=== PATIENT | male | born 1975 | race Caucasian/White ===

== ENCOUNTER 2020-07-12 11:30 | Outpatient (REF) | payer OTHER, SELFPAY ==
--- NOTE | 2020-07-12 11:38 | XR_ITS ---
EXAMINATION: XR LUMBOSACRAL SPINE CLINICAL INFORMATION: Dorsalgia COMPARISON: None TECHNIQUE: Three views of the lumbosacral spine. FINDINGS: There is no fracture or subluxation. Vertebral body height and alignment is maintained. Mild disc space narrowing of L4-L5 with small endplate osteophytes. The sacroiliac joints are symmetric. The sacrum is intact. The bowel gas pattern is unremarkable. XR/XR lumbar spine 2-3V IMPRESSION: Mild degenerative changes of L4-L5.
== END 2020-07-12 11:31 | disposition home or self-care (01) ==
LOC: HO.XRAY 11:30
PROVIDERS: PCP Internal Medicine; Visit Provider Internal Medicine
DX: M54.9 Dorsalgia, unspecified (principal)
CPT/HCPCS: 72100

== ENCOUNTER 2020-07-24 09:04 | Outpatient (REF) | payer OTHER, SELFPAY | END 2020-07-24 09:05 | disposition home or self-care (01) | LOC: HO.LAB 09:04 | PROVIDERS: Visit Provider Internal Medicine | DX: Z20.828 Contact with and (suspected) exposure to other viral communicable diseases (principal) | CPT/HCPCS: C9803; U0003 ==

== ENCOUNTER 2020-11-09 13:00 | Outpatient (RCR) | payer BC, SELFPAY ==
--- NOTE | 2020-10-12 16:47 | MHC.PT.EP ---
[facility] [place] Office [place] Office [place] Office [address] Carina Khan [address] [phone] F: [phone] F: [phone] F: [phone] F: [phone] Physical Therapy Plan of Care Date of Evaluation: 10/12/20 Date of Surgery: NA Diagnosis: DORSALGIA Assessment: Pt IS 45 YO M REFERRED TO PT FROM DR ORDOÑEZ WITH DORSALGIA. Pt REPORTS LONG HX OF BACK PAIN WITH RECENT INCREASE. REPORTS PAIN AFFECTS ABILITY TO STAND FOR LONG PDS. HAS BEEN OOW ( [employer]). PRESENTS TO PT WITH LIMITED TRUNK AND LE FLEXIBILITY, DECREASED CORE STRENGTH. SHOULD BENEFIT FROM PT TO ADDRESS THESE ISSUES. Frequency and Duration: The patient will be seen 2X/WK X 4 WKS Short Term Goals: 1. INCREASED AWARENESS POSTURE AND BACK CARE 2. Pt TO PERF 2-3 TASKS WITH PROPER BODY MECH 3. CENTRALIZE SXS Harvest [employer]or Goals: 1. I HEP WITH DC EX PLAN 2. RTW 3. IMPROVED MOD OSWESTRY 4. DECREASED BACK PAIN AT LEAST 50% WITH ADLS 5. INCREASED R HS FLEX 5-10 DEGREES Treatment Plan: Modalities to reduce pain, spasms and effusion. Manual therapy to restore motion and function. Therapeutic exercise to improve strength and flexibility. Neuromuscular re-education for posture and balance. Therapeutic activities to return to functional activities of daily living. Electronically signed by: PANCHITO LEDEZMA PT Please sign and return to therapist. Thank you for your referral.
--- NOTE | 2021-02-11 08:43 | MHC.PT.DC ---
[facility] [place] Office [place] Office [place] Office [address] Carina Khan [address] [phone] F: [phone] F: [phone] F: [phone] F: [phone] Physical Therapy Discharge Report Diagnosis: DORSALGIA Date of Surgery: NA Date of Evaluation: 10/12/20 Date of Discharge: 02/11/21 Treatments to Date: 7 Cancellations to Date: 0 No Shows to Date: 0 Discharge Status: Improved Function Independent with HEP Discharge Summary: Pt LAST SEEN ON 11/09/20. THE ASSESSMENT FROM THAT NOTE: Pt HAS MET PT STG 1 AND 2, LTGS 1 AND 4 WITH SEEMINGLY IMPROVED HS FLEXIBILITY PER REPORT. Pt WITH CONTINUED C/O L FOOT SXS AND SOME PARESTHESIA L LE WITH GT (REPORTS RELIEF WITH SITTING). HAS I HEP WITH OVERALL IMPROVED FLEXIBILITY. Pt WITH CONTINUED CONCERN RE LE PARESTHESIA AND WOULD LIKE TO WAIT UNTIL NCV TEST (November) BEFORE CONTINUING WITH FURTHER PT (FU FOR NCV November.) NO FURTHER APPTS SCHEDULED Electronically signed by: PANCHITO LEDEZMA PT Please sign and return to therapist. Thank you for your referral.
== END 2021-02-11 08:44 | disposition other institution (70) ==
LOC: HO.PT 13:00
PROVIDERS: PCP Internal Medicine; Visit Provider Internal Medicine
DX: M54.9 Dorsalgia, unspecified (principal)
CPT/HCPCS: 97110; 97161; 97530

== ENCOUNTER 2021-07-03 13:50 | Emergency (ER) | payer BC, SELFPAY ==
--- NOTE | ~2021-07-03 | XR_ITS ---
EXAMINATION: XR ABDOMEN KUB CLINICAL INDICATION: Abdominal distention. Rule out obstruction. COMPARISON: None TECHNIQUE: AP view of the abdomen. FINDINGS: There are no dilated loops of bowel to suggest obstruction. There is no evidence of free air. No calcifications are seen. Bony structures are unremarkable. XR/XR KUB IMPRESSION: No evidence of obstruction.
[2021-07-03 14:01] VITALS: BP 138/86; PULSE 76; RESP 16; TEMP 36.7; O2SAT 99; BMI 18.3
--- NOTE | 2021-07-03 14:27 | ED_ITS ---
HPI - Abdominal Pain General Chief Complaint: Abdominal Pain Stated Complaint: blood in stool, constipation Time Seen by Provider: 07/03/21 14:27 Source: patient Mode of arrival: ambulatory Limitations: no limitations History of Present Illness HPI narrative: Increased constipation for 4 days. patient states he never suffered from constipation like this before. MD elicited complaint: abdominal pain Pertinent past history: constipation Onset (ago): day(s) Pain Consistency: constant Location: RLQ and LLQ Severity: moderate Quality: cramping Exacerbating factors: nothing Relieving factors: nothing Associated symptoms: denies other symptoms Related Data Home Medications Medication Instructions Recorded Confirmed gabapentin 100 mg capsule 100 mg PO BEDTIME 01/24/21 03/13/21 Previous Rx's Medication Instructions Recorded atenolol 25 mg tablet 25 mg PO DAILY #90 tab 10/05/20 lisinopril 10 mg tablet 10 mg PO DAILY #90 tab 01/22/21 sertraline 50 mg tablet 50 mg PO DAILY #30 tab 02/04/21 lactulose 10 gram/15 mL (15 mL) 20 g (30 mL) PO TID #1440 ml 07/03/21 oral solution psyllium husk 0.4 gram capsule 0.4 g PO DAILY #60 cap 07/03/21 (Metamucil) Allergies Allergy/AdvReac Type Severity Reaction Status Date / Time No Known Allergies Allergy Verified 03/04/21 10:57 Review of Systems Constitutional: Reports no additional constitutional complaints Eyes: Reports no additional eye complaints Denies dizziness Cardiovascular: Reports no additional cardiovascular complaints Respiratory: Reports as per HPI Gastrointestinal: Reports no additional gastrointestinal complaints Musculoskeletal: Reports no additional musculoskeletal complaints Skin/Breast: Denies rash Reports system reviewed and no additional complaints, except as documented, Denies dizziness and Denies Sensory deficit (Neuro) Psychiatric: Denies anxiety Physical Exam Vital Signs: Vital Signs: Last Vital Signs Temp 98.1 F 07/03/21 14:01 Pulse 76 07/03/21 14:01 Resp 16 07/03/21 14:01 BP 138/86 07/03/21 14:01 Pulse Ox 99 07/03/21 14:01 Body Mass Index 18.3 Const: Other: very thin male non toxic appearing Nutritional Appearance: average body habitus Orientation/consciousness: oriented to person and patient oriented x3 Limitations: no limitations HENMT: Head: Yes normal to inspection Ears: external ears normal General nose exam: Normal external nose present Mouth: Normal oral and palatal mucosa present and oropharynx normal Throat: Yes posterior oropharynx normal Eyes: General: appearance normal, both eyes and all related structures Neck: Other: supple Neck: Yes normal visual inspection Chest: Chest palpation & inspection: normal inspection of the chest Resp: Auscultation: clear to auscultation bilaterally Cardio: Jugular venous distension: no JVD Rate: regular rate Rhythm: regular rhythm Heart sounds: S1 normal heart sound present and S2 normal heart sound present GI: Other: slight distended Palpation (GI): Soft to palpation, nontender and No hepatosplenomegaly present Auscultation: normal bowel sounds : Other: rectal with hemorrhoid, brown stool heme negative General: Yes no CVA tenderness Back/Spine/Pelvis: Back: no CVA tenderness Skin: General skin exam: no rashes or lesions noted Neuro: General: oriented to person and patient oriented x3 Cranial nerves: Yes CN's II-XII intact bilaterally Motor exam (neuro): 5/5 motor strength present throughout Sensory Exam: No Sensory deficit (Neuro) Extrem: General: Yes normal to inspection Psych: Appearance: grossly normal Course Reevaluation(s) Reevaluation #1: In his history patient state that he was straining and passed blood, patient denies suffering from hemorrhoids Time: 15:13 Reevaluation #2: Impression, constipation, hemorrhoid with some bleeding while straining Time: 15:20 MDM - Abdominal Pain Imaging Data Abdominal x-ray: Radiologist's impression: FINDINGS: There are no dilated loops of bowel to suggest obstruction. There is no evidence of free air. No calcifications are seen. Bony structures are unremarkable. XR/XR KUB IMPRESSION: No evidence of obstruction. ? Discharge Plan Discharge Clinical Impression: Constipation Qualifiers: Constipation type: unspecified constipation type Qualified Code(s): K59.00 - Constipation, unspecified Hemorrhoid Qualifiers: Hemorrhoid type: unspecified Qualified Code(s): K64.9 - Unspecified hemorrhoids Patient Disposition: Home, Self-Care Instructions: Constipation (ED), Hemorrhoids (ED) Prescriptions: New lactulose 10 gram/15 mL (15 mL) solution 20 g PO TID Qty: 1440 RF: 0 psyllium husk [Metamucil] 0.4 gram capsule 0.4 g PO DAILY Qty: 60 RF: 0 No Action atenolol 25 mg tablet 25 mg PO DAILY Qty: 90 RF: 8 lisinopril 10 mg tablet 10 mg PO DAILY Qty: 90 RF: 8 sertraline 50 mg tablet 50 mg PO DAILY Qty: 30 RF: 8 gabapentin 100 mg capsule 100 mg PO BEDTIME RF: 0 Referrals: Charli De La Garza MD [Primary Care Provider] - 1 week [facility] Past Medical History Medical History Depression Hypertension Lumbar disc disease Surgical History H/O hernia repair Family History Family History Father No problems noted. Mother No problems noted. Social History Social History Housing: House Alcohol intake: current Alcohol intake frequency: holidays/special occasions only Alcohol type: beer Patient Tobacco Use Status: Current everyday Tobacco user Tobacco use type: Smokeless Tobacco e-Cigarette/Vaping Use: Currently Using Second Hand Smoke Exposure: No Advance Directives: No Advance Directives Information Provided: Yes service: No Current occupational status: employed and unemployed
== END 2021-07-03 15:31 | disposition home or self-care (01) ==
PROVIDERS: Emergency Provider Emergency Medicine; PCP Internal Medicine
DX: K59.00 Constipation, unspecified (principal); K64.9 Unspecified hemorrhoids
CPT/HCPCS: 74018; 99283

== ENCOUNTER → 2023-02-09 10:15 | Outpatient (BNVA) | payer SELFPAY | PROVIDERS: PCP Internal Medicine; Visit Provider Physician Assistant | DX: M54.9 Dorsalgia, unspecified (principal) | CPT/HCPCS: 99202 ==

== ENCOUNTER 2024-05-11 09:09 | Emergency (ER) | payer OTHER, SELFPAY ==
--- NOTE | ~2024-05-11 | CT_ITS ---
EXAMINATION: CT ABDOMEN AND PELVIS WITH CONTRAST CLINICAL INFORMATION: Diarrhea and lower abdominal pain COMPARISON: None available. TECHNIQUE: Multidetector volumetric images were obtained from the superior aspect of the liver through the pubic symphysis following administration 85 mL of Omnipaque 350 intravenous contrast. Sagittal and coronal reformatted images were obtained on the technologist's workstation. Oral contrast: No This CT examination was performed using dose optimization techniques as appropriate, variously including the following: *Automated exposure control *Adjustment of mA and/or kV according to patient size (this includes techniques or standardized protocols for targeted exams where dose is matched to indication/reason for exam; i.e. extremities or head) *Use of iterative reconstruction technique DLP: 364 mGy-cm FINDINGS: LUNG BASES: The visualized lung bases are unremarkable. LIVER, GALLBLADDER, AND BILIARY TREE: The liver is enlarged. Liver revealed numerous very small low-attenuation lesions consistent with appearance of cysts behind slightly irregular lesion in the left lobe of the liver possibly cysts versus mass, measured 3.3 by g.ci 2.7 cm, correlate with MRI. The gallbladder is unremarkable with no evidence of radiopaque gallstones, gallbladder wall thickening, or obvious pericholecystic inflammatory changes. PANCREAS: Unremarkable. SPLEEN: Unremarkable. ADRENAL GLANDS: Unremarkable. KIDNEYS AND URETERS: The numerous overlapping cysts consistent with polycystic kidney disease. There are no solid masses or hydronephrosis. No nephrolithiasis is seen. BLADDER: Unremarkable. GASTROINTESTINAL TRACT: The small and large bowel are unremarkable. The appendix is not seen ABDOMINAL WALL: No significant hernia is appreciated. LYMPH NODES: Normal. VASCULAR: Unremarkable. PELVIC VISCERA: Unremarkable. OSSEOUS STRUCTURES: Degenerative changes with narrowing of L4-5 and L5-S1 intervertebral disc spaces CT/CT abdomen pelvis w IV con IMPRESSION: 1. Polycystic kidney disease. 2. Numerous small cysts in the liver. 3. Slightly irregular lesion in the left lobe of the liver, correlate with MRI. Fleischner guidelines were followed. Electronically signed by: Mae Quintana MD 05/11/2024 11:13 AM EDT
[2024-05-11 09:13] VITALS: BP 140/98; PULSE 98; RESP 16; TEMP 36.3; O2SAT 99; BMI 18.3
[2024-05-11 09:44] LABS: MANUAL DIFF FLAG NO
--- NOTE | 2024-05-11 09:46 | ED.NAVMDI ---
HPI - Nausea/Vomiting/Diarrhea General Chief complaint: Nausea/Vomiting/Diarrhea Stated complaint: diarrhea-cold sweats Time Seen by Provider: 05/11/24 09:27 Source: patient and old records reviewed Mode of arrival: ambulatory Limitations: no limitations History of Present Illness ED Provider: ADDIS SELBY Narrative: 49 yo male with PMH of HTN, depression, back pain here with c/o 4 days of diarrhea and some poor appetite and nausea. No fevers, no bloody stools, no travel, food exposures, sick contacts or abx use. He has had this on and off but no hx of IBD or IBS. He is not sure what is causing this. No change in diet. MD elicited complaint: nausea, diarrhea and abdominal pain Onset (ago): day(s) (4) Description of diarrhea: watery Associated nausea: Yes Associated abdominal pain: Yes Location of pain: suprapubic Pain consistency: intermittent Severity: mild Quality: cramping Exacerbating factors: bowel movement Relieving factors: none Associated symptoms: loss of appetite, malaise and nausea/vomiting Related Data Previous Rx's ?Medication ?Instructions ?Recorded lactulose 10 gram/15 mL (15 mL) 20 g (30 mL) PO TID #1,440 mL 07/03/21 oral solution psyllium husk 0.4 gram capsule 0.4 g PO DAILY #60 caps 07/03/21 (Metamucil) sertraline 50 mg tablet 50 mg PO DAILY #30 tabs 01/13/23 lisinopril 10 mg tablet 10 mg PO DAILY #90 tabs 07/08/23 atenolol 25 mg tablet 25 mg PO DAILY #90 tabs 02/24/24 Allergies Allergy/AdvReac Type Severity Reaction Status Date / Time bee pollen [bee stings] Allergy Anaphylaxis Verified 05/11/24 09:16 Review of Systems Review of Systems: Constitutional : No Weight loss, No Fever, No Chills ENT/Mouth : No sore throat, No Rhinorrhea Eyes: No Swelling, No Redness Cardiovascular : No Chest Pain, No SOB, NoEdema Respiratory : No Cough, No Sputum, No Wheezing Gastrointestinal : Positive Nausea, no Vomiting, positive Diarrhea, positive abdominal Pain, No Hematochezia, No Melena Genitourinary : No Dysuria, No Urinary Frequency, No Hematuria, No Urgency Musculoskeletal : No joint pain, No Myalgias, No Joint Swelling Skin : No Skin Lesions, No rash Neuro : No Weakness, No Numbness, No Dizziness, No Headache Psych : No Anxiety/Panic, No Depression All other systems reviewed and are negative. Gastrointestinal: Gastrointestinal: Reports nausea PMFSH Past Medical History Attestation statement: The following information was validated with the patient. Medical History Hypertension Depression Lumbar disc disease Surgical History H/O hernia repair Family History Family History Father No problems noted. Mother No problems noted. Social History Social History Housing: House Alcohol intake: current Alcohol intake frequency: holidays/special occasions only Alcohol type: beer Patient Tobacco Use Status: Current everyday Tobacco user Tobacco use type: Smokeless Tobacco e-Cigarette/Vaping Use: Currently Using Second Hand Smoke Exposure: No Advance Directives: No service: No Current occupational status: employed and unemployed Physical Exam Vital Signs: Vital Signs: Last Vital Signs Temp 97.4 F 05/11/24 09:13 Pulse 98 05/11/24 09:13 Resp 16 05/11/24 09:13 BP 140/98 H 05/11/24 09:13 Pulse Ox 99 05/11/24 09:13 O2 Del Method Room Air 05/11/24 09:13 BMI result Body Mass Index 18.3 Appearance: Alert. Oriented X3. No acute distress. Eyes: Pupils equal, round and reactive to light. ENT: Pharynx normal. Neck: Normal inspection. Neck supple. CVS: Normal heart rate and rhythm. Pulses normal. Respiratory: No respiratory distress. Breath sounds normal. Abdomen: Soft and nontender. Skin: Skin warm and dry. Normal skin color. Normal skin turgor. Extremities: No lower extremity edema. No calf ttp Neuro: Oriented X 3. No motor deficit. No sensory deficit. Medications Administered Discontinued Medications Generic Name Dose Route Start Last Admin Trade Name Freq PRN Reason Stop Dose Admin Lactated Ringer's 1,000 mls @ 999 mls/hr 05/11/24 09:50 05/11/24 10:29 Lr IV 05/11/24 10:50 999 mls/hr .Q1H1M ONE Administration Iohexol 100 ml 05/11/24 10:20 05/11/24 10:20 Iohexol 350 Mg/Ml 100 Ml Infus..Btl IV 05/11/24 10:21 85 ml ONCE ONE Administration Medical Decision Making Medical Decision Making [facility] Narrative: 49 yo male with PMH of HTN, depression, back pain here with c/o 4 days of intermittent nausea, cramping, diarrhea at this time will need basic labs, stool studies and CT scan for colitis/diverticulitis/IBS. He denies risk factors for infectious diarrhea. Differential Diagnosis Differential Diagnoses: The differential diagnosis associated with the presentation includes diverticulitis, viral syndrome, colitis, IBS Admission/Observation Consideration of admission/observation: Escalation of care including admission/observation considered no diarrhea here no acute cause slightly low Na given LR will repeat with his doctor in next 48 hours encourage fluids Lab Data [facility] Lab Attestation statement: I reviewed the patient's lab results. 05/11/24 09:35 05/11/24 09:35 Labs: Lab Results 05/11/24 Range/Units 09:35 WBC 6.9 (4.8-10.8) X10*3/uL RBC 5.01 (4.60-5.80) X10*6/uL Hgb 16.1 (14.0-18.0) g/dl Hct 43.4 (42.0-52.0) % MCV 86.6 (80.0-98.0) fL MCH 32.1 (27.0-33.0) pg MCHC 37.1 H (31.0-36.0) g/dl RDW 11.4 (11.0-16.0) % Plt Count 240 (160-400) X10*3/uL MPV 9.7 (9.4-12.4) fL Immature Gran % (Auto) 0.4 (0.0-0.4) % Neut % (Auto) 75.9 H (45-73) % Lymph % (Auto) 17.2 L (20-40) % [place] % (Auto) 5.8 (2-11) % Eos % (Auto) 0.3 (0-4) % Baso % (Auto) 0.4 (0-2) % Lymph # (Auto) 1.2 (1.2-4.9) X10*3/uL [place] # (Auto) 0.4 (0.1-1.2) X10*3/uL Eos # (Auto) 0.0 (0.0-0.4) X10*3/uL Baso # (Auto) 0.0 (0.0-0.2) X10*3/uL Abs Immat Gran (auto) 0.03 (0.00-0.03) X10*3/uL Absolute Neuts (auto) 5.2 (2.0-8.3) x10*3/uL Absolute Nucleated RBC 0.000 (0.0-0.012) X10*3/uL Nucleated RBC % (auto) 0.0 (0.0-0.2) /100WBC Sodium 131 L (135-145) mmol/L Potassium 3.9 (3.3-5.1) mmol/L Chloride 96 (96-108) mmol/L Carbon Dioxide 26 (22-29) mmol/L Anion Gap 13 (12-20) BUN 12 (9-16) mg/dL Creatinine 1.06 (0.5-1.4) mg/dL Estim Creat Clear Calc 71.4 Estimated GFR > 60 Random Glucose 112 (60-115) mg/dL Calcium 10.1 (8.4-10.2) mg/dL Magnesium 1.8 (1.6-2.6) mg/dL Total Bilirubin 1.3 H (0.0-1.0) mg/dL Direct Bilirubin 0.4 (0.0-0.5) mg/dL AST 20 (5-37) U/L ALT 17 (0-40) U/L Alkaline Phosphatase 70 (39-117) U/L Total Protein 7.8 (6.5-8.0) g/dL Albumin 4.8 (3.5-5.0) g/dL Lipase 37 (8-78) U/L Urine Color Dark Yellow Urine Appearance Clear Urine pH 5.5 (5.0-9.0) Ur Specific [place] 1.020 (1.005-1.025) Urine Protein 100 (2+) H (Neg-Trace) mg/dL Urine Glucose (UA) Negative (Negative) mg/dL Urine Ketones 40 (Negative) mg/dL Urine Blood Moderate (2+) H (Negative) Urine Nitrite Negative (Negative) Ur Leukocyte Esterase Negative (Negative) Urine RBC 0-2 (0-2) /HPF Urine WBC 0-5 (0-5) /HPF Ur Squamous Epith Cells 0-2 (0-2) /HPF Urine Bacteria None Seen (None Seen) Hyaline Casts 3-5 (0-2) /LPF Independent Interpretation I performed an independent interpretation of an: CT Scan (no acute findings) Radiology Impression Discussion of test interpretation with radiology: I have reviewed the radiologist's reading. External Record Review External record reviewed: Office record Prescription Management I considered prescription management with: Other Discharge Plan Discharge Clinical Impression: Diarrhea, Acute hyponatremia, Acute dehydration Instructions: Acute Diarrhea (ED), Dehydration (ED), Hyponatremia (ED) Additional Instructions: labs reassuring other than mildly low sodium 131 repeat with your doctor your CT scan shows nothing with your intestines you should drink plenty of fluids repeat sodium level with your doctor in 48 hours return for any worsening symptoms or concerns your CT scan shows possible small lesion on liver your doctor needs to order outpatient MRI CT/CT abdomen pelvis w IV con IMPRESSION: 1. Polycystic kidney disease. 2. Numerous small cysts in the liver. 3. Slightly irregular lesion in the left lobe of the liver, correlate with MRI. Prescriptions: No Action lisinopril 10 mg tablet 10 mg PO DAILY Qty: 90 8RF atenolol 25 mg tablet 25 mg PO DAILY Qty: 90 0RF lactulose 10 gram/15 mL (15 mL) solution 20 g PO TID Qty: 1440 0RF psyllium husk [Metamucil] 0.4 gram capsule 0.4 g PO DAILY Qty: 60 0RF sertraline 50 mg tablet 50 mg PO DAILY Qty: 30 8RF Print Language: Maori
[2024-05-11 09:47] LABS: Appearance Urine Clear; Color Urine Dark Yellow; Glucose Urine UA Negative (Negative); Leukocyte Esterase Urine Negative (Negative); Nitrite Urine Negative (Negative); PH 5.5 (5.0-9.0); UMIC TRIGGER UACC YES; Urine Blood Moderate (2+) (Negative); Urine Ketones 40 mg/dL (Negative); Urine Protein 100 (2+) mg/dL (Neg-Trace)
[2024-05-11 09:57] LABS: Bacteria Urine None Seen (None Seen); RBC Urine 0-2 /HPF (0-2); Squamous Epithelial Cell Urine 0-2 /HPF (0-2); WBC Urine 0-5 /HPF (0-5)
[2024-05-11 10:05] LABS: Alanine Aminotransferase 17 U/L (0-40); Albumin Level 4.8 g/dL (3.5-5.0); Alkaline Phosphatase 70 U/L (39-117); Anion Gap 13 (12-20); Aspartate Amino Transferase 20 U/L (5-37); Bilirubin Direct 0.4 mg/dL (0.0-0.5); Bilirubin Total 1.3 mg/dL (0.0-1.0); Blood Urea Nitrogen 12 mg/dL (9-16); Calcium 10.1 mg/dL (8.4-10.2); Carbon Dioxide 26 mmol/L (22-29); Chloride 96 mmol/L (96-108); Creatinine Clr Calc Pharmacy 71.4; Estimated Glomerular Filt Rate > 60; Glucose Random 112 mg/dL (60-115); Lipase 37 U/L (8-78); Magnesium 1.8 mg/dL (1.6-2.6); Potassium 3.9 mmol/L (3.3-5.1); Sodium 131 mmol/L (135-145); Total Protein 7.8 g/dL (6.5-8.0)
[2024-05-11 10:09] LABS: Basophils Percent Auto 0.4 % (0-2); Eosinophils Percent Auto 0.3 % (0-4); Hematocrit 43.4 % (42.0-52.0); Hemoglobin 16.1 g/dl (14.0-18.0); Imm Gran Abs Auto 0.03 X10*3/uL (0.00-0.03); Imm Gran Pct Auto 0.4 % (0.0-0.4); Lymphocytes Absolute Auto 1.2 X10*3/uL (1.2-4.9); Lymphocytes Percent Auto 17.2 % (20-40); Mean Corpuscular HGB Conc 37.1 g/dl (31.0-36.0); Mean Corpuscular Hemoglobin 32.1 pg (27.0-33.0); Mean Corpuscular Volume 86.6 fL (80.0-98.0); Mean Platelet Volume 9.7 fL (9.4-12.4); Monocytes Absolute Auto 0.4 X10*3/uL (0.1-1.2); Monocytes Percent Auto 5.8 % (2-11); Neutrophils Absolute Auto 5.2 x10*3/uL (2.0-8.3); Neutrophils Percent Auto 75.9 % (45-73); Platelet Count 240 X10*3/uL (160-400); Red Blood Count 5.01 X10*6/uL (4.60-5.80); Red Cell Distribution Width 11.4 % (11.0-16.0); White Blood Count 6.9 X10*3/uL (4.8-10.8)
[2024-05-11] MEDS: iohexoL 350 MG/ML 100 ML INFUS..BTL IV (10:20)
[2024-05-11] MEDS: Lactated Ringers 1,000 ML 999 ML IV (10:29)
[2024-05-11 11:35] VITALS: BP 140/98; PULSE 98; RESP 16; TEMP 36.3; O2SAT 99
== END 2024-05-11 11:53 | disposition home or self-care (01) ==
PROVIDERS: Emergency Provider Emergency Medicine; PCP Internal Medicine
DX: E86.0 Dehydration (principal); R11.2 Nausea with vomiting, unspecified; E87.1 Hypo-osmolality and hyponatremia; F33.1 Major depressive disorder, recurrent, moderate; I10 Essential (primary) hypertension; R10.9 Unspecified abdominal pain; F17.210 Nicotine dependence, cigarettes, uncomplicated; Z79.899 Other long term (current) drug therapy
CPT/HCPCS: 36415; 74177; 80048; 80076; 81001; 83690; 83735; 85025; 99283; 99284; J7120; Q9967

== ENCOUNTER 2024-05-25 13:25 | Outpatient (AMB) | payer OTHER, SELFPAY ==
[2024-05-25 13:27] VITALS: BP 136/82; PULSE 79; O2SAT 98; BMI 17.9
--- NOTE | 2024-05-25 13:27 | A.OFFPC_ITS ---
Vital Signs 05/25/24 13:27 Height 6 ft Weight 132 lb BMI 17.9 BP 136/82 Blood Pressure Location Lt brachial Position Sitting Pulse 79 Pulse Source Pulse Oximeter Pulse Oximetry (%) 98 Oxygen Delivery Method Room Air Intake Visit Reasons: Annual PE Implementation Advisor Required: No Accompanied by: Self / Same As Patient Allergies bee pollen [bee stings] Allergy (Verified 05/25/24 13:32) Anaphylaxis Medication List - Last Reconciled 05/30/24 by Charli De La Garza MD atenolol 25 mg PO DAILY lactulose 20 grams (30 mL) PO TID lisinopril 10 mg PO DAILY psyllium husk (Metamucil) 0.4 grams PO DAILY sertraline 50 mg PO DAILY Tobacco use date assessed: 05/25/24 Dental Screening Dental Screen Date: 05/25/24 Did you have a dental visit in the last 12 months?: No Did you have a dental problem in the last 6 months where you did not have access to dental care?: No Was dental information given to patient?: Patient declined HPI Annual PE HPI Details HTN on Rx; doing well PFSH Medical History Hypertension Depression Lumbar disc disease Surgical History H/O hernia repair Family History Father No problems noted. Mother No problems noted. Social History Housing: House Alcohol intake: current Alcohol intake frequency: holidays/special occasions only Alcohol type: beer Patient Tobacco Use Status: Former Tobacco user Tobacco use type: Smokeless Tobacco e-Cigarette/Vaping Use: Former Use Second Hand Smoke Exposure: No service: No Current occupational status: unemployed Cognitive needs: No Hearing needs: No Vision needs: Yes Questionnaire PHQ-9 Over the last 2 weeks, how often have you been bothered by any of the following problems? 1. Little interest or pleasure in doing things: not at all 2. Feeling down, depressed, or hopeless: not at all 3. Trouble falling or staying asleep, or sleeping too much: not at all 4. Feeling tired or having little energy: not at all 5. Poor appetite or overeating: not at all 6. Feeling bad about yourself - or that you are a failure or have let yourself or your family down: not at all 7. Trouble concentrating on things, such as reading the newspaper or watching television: not at all 8. Moving or speaking so slowly that other people could have noticed. Or the opposite - being so fidgety or restless that you have been moving around a lot more than usual: not at all 9. Thoughts that you would be better off or of hurting yourself in some way: not at all Total score: 0 Source: Developed by Drs. Joshua Eckert, Flory Minor, Abdirahman Fowler and colleagues, with an educational charmaine from [employer]. Thrive Questionnaire Date Thrive assessed: 05/18/24 I am a: Patient What is your living situation today?: I have a steady place to live Within the past 12 months, did the food you bought not last and you didn't have the money to get more?: I choose not to answer this question Within the past 12 months, did you worry whether your food would run out before you got money to buy more?: I choose not to answer this question Do you have trouble paying for medicines?: I choose not to answer this question Do you have trouble getting transportation to medical appointments?: I choose not to answer this question Do you have trouble paying your heating and electricity bill?: I choose not to answer this question Do you have trouble taking care of your child, family member or friend?: I choose not to answer this question Do you have trouble with day-to-day activities such as bathing, preparing meals, shopping, managing finances, etc.?: I choose not to answer this question Are you currently unemployed and looking for a job?: Yes Are you interested in more education?: No Please select the resources that you would like help with: None Currently or been in a relationship where the following occur: No concerns reported THRIVE Score: 0 AUDIT C Alcohol Use Questionnaire (AUDIT-C) 1. How often do you have a drink containing alcohol?: Monthly or less 2. How many drinks containing alcohol do you have on a typical day when you are drinking?: 1 or 2 3. How often do you have six or more drinks on one occasion?: Never Total Score: 1 SOPHIE-7 AMB Questionnaire SOPHIE-7 Date SOPHIE - 7 assessed: 05/25/24 Feeling nervous, anxious, or on edge: 0 = Not at all Not being able to stop or control worryin = Not at all Worrying too much about different things: 0 = Not at all Trouble relaxin = Not at all Being so restless that it is hard to sit still: 0 = Not at all Becoming easily annoyed or irritable: 0 = Not at all Feeling afraid as if something awful might happen: 0 = Not at all Total SOPHIE-7 score (0-4 normal; 5-9 mild; 10-14 moderate; 15-21 severe): 0 Source: Developed by Drs. Joshua Eckert, Flory Minor, Abdirahman Fowler and colleagues, with an educational charmaine from [employer]. Review of Systems Const Denies chills, Denies fatigue, Denies headache(s) and Denies weight loss Eyes Denies change in vision, Denies diplopia and Denies eye pain ENT Denies vertigo, Denies dizziness, Denies headache(s) and Denies nasal discharge Card Denies chest pain, Denies rapid heart rate and Denies dyspnea on exertion Resp Denies chest congestion, Denies cough, Denies pain with cough and Denies dyspnea on exertion GI Denies abdominal pain, Denies hematochezia and Denies change in bowel habits Musc Denies myalgias, Denies arthralgias and Denies joint swelling Skin/Breast Denies lesions and Denies unusual bruising Neuro Denies vertigo, Denies dizziness, Denies headache(s) and Denies focal weakness Endo Denies fatigue Physical exam (Primary Care) Vital Signs: Last Vital Signs Pulse 79 05/25/24 13:27 BP 136/82 05/25/24 13:27 Pulse Ox 98 05/25/24 13:27 Oxygen Delivery Method Room Air 05/25/24 13:27 BMI result Body Mass Index 17.9 Tobacco/Smoking Status: Tobacco use Status Tobacco use date assessed 05/25/24 05/25/24 13:32 Patient Tobacco Use Status Former Tobacco user 05/25/24 13:32 Tobacco use type Smokeless Tobacco 05/25/24 13:32 e-Cigarette/Vaping Use Former Use 05/25/24 13:32 PHQ-9: PHQ-9 Score PHQ-9: Total score 0 05/25/24 13:32 Thrive Assessment: Date of Thrive Assessment Date Thrive assessed 05/18/24 05/25/24 13:32 Currently or been in a relationship where the following occur: No concerns reported Const General: cooperative, healthy appearing and no acute distress Orientation/consciousness: oriented to person, oriented to place and oriented to time HENMT Head: Yes normal to inspection, Yes normocephalic and Yes atraumatic Mouth: Normal oral and palatal mucosa present and tongue normal Throat: Yes posterior oropharynx normal and Yes uvula midline Eyes General: appearance normal, both eyes and all related structures Neck Neck: Yes normal visual inspection, Yes full ROM and Yes no lymphadenopathy Thyroid: Thyroid normal Carotids: normal carotid upstroke Chest Chest palpation & inspection: normal inspection of the chest Resp Effort & Inspection: normal respiratory effort and able to speak in complete sentences Auscultation: clear to auscultation bilaterally Cardio Jugular venous distension: no JVD Palpation: normal PMI Rate: regular rate Rhythm: regular rhythm Heart sounds: S1 normal heart sound present and S2 normal heart sound present GI Inspection: Yes normal to inspection Palpation (GI): Soft to palpation and No hepatosplenomegaly present Auscultation: normal bowel sounds General: Yes no CVA tenderness Back/Spine/Pelvis Back: no CVA tenderness Skin General skin exam: no rashes or lesions noted Neuro General: oriented to person, oriented to place and oriented to time Extrem General: Yes normal to inspection and Yes full ROM Coding Level of Care Code Est Pt Prev Care 40-64y(24609) Diagnoses Physical exam Z00.00 Hypertension I10 Assessment & Plan Assessment & Plan (1) Physical exam: Code(s): Z00.00 - Encounter for general adult medical examination without abnormal findings Category: Medical Plan: stable; do labs (2) Hypertension: Code(s): I10 - Essential (primary) hypertension Category: Medical Plan: same rx
== END 2024-05-25 13:52 | disposition home or self-care (01) ==
PROVIDERS: PCP Internal Medicine; Visit Provider Internal Medicine
DX: Z00.00 Encounter for general adult medical examination without abnormal findings (principal); I10 Essential (primary) hypertension

== ENCOUNTER → 2024-05-25 13:25 | Outpatient (BNVA) | payer OTHER, SELFPAY | PROVIDERS: PCP Internal Medicine; Visit Provider Internal Medicine | DX: Z00.00 Encounter for general adult medical examination without abnormal findings (principal); I10 Essential (primary) hypertension | CPT/HCPCS: 96127; 99396 ==

== ENCOUNTER 2024-07-17 12:28 | Outpatient (REF) | payer OTHER, SELFPAY ==
[2024-07-17] MEDS: gadobutroL 7.5 ML VIAL IVPUSH (13:11)
== END 2024-07-17 12:29 | disposition home or self-care (01) ==
LOC: HO.MRI 12:28
PROVIDERS: PCP Internal Medicine; Visit Provider Internal Medicine
DX: R10.9 Unspecified abdominal pain (principal); R16.0 Hepatomegaly, not elsewhere classified
CPT/HCPCS: 74183; A9585

== ENCOUNTER 2024-10-24 10:05 | Outpatient (REF) | payer OTHER, SELFPAY ==
--- OUTSIDE RECORDS SUMMARY | 2024-10-24 11:30 | XMS_ITS ---
Author Organization [facility] Address [address] [place] [address] Care Team Providers Care Event Producer Name Role Phone Charli De La Garza MD Primary Care Provider Joshua Cuellar [phone] ALLERGIES No Known Allergies REASON FOR VISIT Patient presents today for a colon screening MEDICATIONS Medication SIG (Take, Route, Fr equency, Duration) Notes Start Date End Date Status Lisinopril 10 MG Oral for 90 A ctive Atenolol 25 MG TAKE 1 TABLET BY AP TH ONCE DAILY Oral for 90 Active IMMUNIZATIONS Vaccine Route Administration Date Status Comme nts Influenza Unknown 09/28/2024 Refused SOCIAL HISTORY Tobacco Use: Social History Observation Description Date Details (start date - stop date) Never Smoker NA - NA Sex Assigned At : Social History Observation Description Sex Assigned At Unknown Tobacco Use/Smoking Question Answer Notes Patient is a nonsmoker Alcohol Screen Question Answer Notes Did you have a drink containing alcohol in the p ast year? No Points 0 Interpretation Negative PROBLEMS Problem Type ICD Code Onset Dates Problem Status W/U Status Risk SNOMED Code Notes Problem Encounter for screening for malignant neoplasm of colon (Z12.11) Active confirmed Screening for malignant neoplasm of colon (373142061) Problem Encounter for other preprocedural examination (Z01.818) Active confirmed Pre-procedure evaluation check (680497661) VITAL SIGNS Temperature 98.2 degrees Fahrenheit 09/28/19 25 Blood pressure systolic 000 mm Hg 09/28/19 25 Blood pressure diastolic 00 mm Hg 025 Height 6 ft in 09/28/2024 Weight 145 lbs 09/28/2024 BMI 19.66 kg/m2 09/28/2024 Encounters Encounter Location Date Provider Diagnosis [facility] [address] [place] [phone] 09/28/2024 Joshua Lawrence Encounter for screen ing for malignant neoplasm of colon Z12.11 and Encounter for other preprocedural examination Z01.818 ASSESSMENTS Encounter Date Diagnosis Assessment Notes Treatment Notes Treatment Clinical Notes 09/28/2024 Encounter for screening for malignant neoplasm of colon (ICD-10 - Z12.11) 09/28/2024 Encounter for other preprocedural examination (ICD-10 - Z01.818) PLAN OF TREATMENT Future Test Test Name Order Date COLONOSCOPY 09/28/2024 Next Appt Details Follow Up: prn, Reason: Provider Name:Joshua Lawrence , 12/26/2024 01:20:00 PM, [address] [place] [address], [id number], Progress Notes * Examination Category Sub-Category Detail Notes General Examination GENERAL APPEARANCE: pleasant , well nourished, well developed, in no acute distress HEAD: EYES: sclera non-icteric EARS: NOSE: THROAT: NECK/THYROID: no cervical lymphade nopathy, neck supple HEART: S1, S2 normal CHEST: LUNGS: clear to auscultatio n bilaterally ABDOMEN: normal bowel sounds, no guarding or rigidity, no guarding or rigidity, no masses palpable, soft, nontender, nondistended NEUROLOGIC: alert and oriented SKIN: nonjaundiced, no spi kristen angiomata EXTREMITIES: no edema PERIPHERAL PULSES: BACK: BREASTS: MUSCULOSKELETAL: MALE GENITOURINARY: LYMPH NODES: RECTAL EXAM: FEMALE GENITOURINARY: ORAL CAVITY: mucosa moist
--- OUTSIDE RECORDS SUMMARY | 2024-10-24 11:30 | XMS_ITS | Patient Health Record ---
Author Organization [facility] Address [address] [place] [address] Care Team Providers Care Pharmacy Buyer Name Role Phone Charli De La Garza MD Primary Care Provider Joshua Cuellar Unavailable [phone] ALLERGIES No Known Allergies REASON FOR REFERRAL No Information MEDICATIONS Medication SIG (Take, Route, Frequency, Duration) Notes Start Date End Date Status Lisinopril 10 MG Oral for 90 A ctive Dulcolax (colon prep) 5 MG take at 3:00 p.m and 7:00p.m. Orally two tablets twice a day for one day for 1 day 10/02/2024 Active MiraLax (colon prep) 17 GM/SCOOP 1 238Gm bottle mixed with Gatorade or Crystal Light Orally begin at 5:00 p.m. the day before the procedure for 1 day 10/02/2024 Active Atenolol 25 MG TAKE 1 TABLET BY [...] confirmed Screening for malignant neoplasm of colon (355082449) Problem Encounter for other preprocedural examination (Z01.818) Active confirmed Pre-procedure evaluation check (522393402) VITAL SIGNS Temperature 98.2 degrees Fahrenheit 09/28/2024 Blood pressure diastolic 00 mm Hg 09/28/2024 Height 6 ft in 09/28/2024 Blood pressure systolic 000 mm Hg 09/28/2024 Weight 145 lbs 09/28/2024 BMI 19.66 kg/m2 09/28/2024 Encounters Encounter Location Date Provider Diagnosis [facility] [address] [place] [phone] 09/28/2024 Joshua Lawrence Encounter for screen ing for malignant neoplasm of colon Z12.11 and Encounter for other preprocedural examination Z01.818 [facility] [address] [place] [phone] 09/28/2024 Joshua Melinda ASSESSMENTS Encounter Date Diagnosis Assessment Notes Treatment Notes Treatment Clinical Notes 09/28/2024 Encounter for screening for malignant neoplasm of colon (ICD-10 - Z12.11) 09/28/2024 Encounter for other preprocedural examination (ICD-10 - Z01.818) PLAN OF TREATMENT Future Test Test Name Order Date COLONOSCOPY 09/28/2024 Next Appt Details Provider Name:Joshua Robert Lawrence , 12/26/2024 01:20:00 PM, [address] [facility] , [place], [place], [id number], Insurance Providers Payer Name Payer Address Payer Phone Subscriber Number Group Number Insured Name Patient Relationship to Insured Coverage Start Date Coverage End Date [facility] Outline [facility] [address] [address] [place], [place] [id number] ENRIQUETA VAUGHN Self - patient is the insured MEDICAL (GENERAL) HISTORY Medical History History ICD Code Polycystic kidneys and hepatic cysts Herniated discs L4/L5 HTN Denies CT,DM,CVA,Lung disease Surgical History Surgery Date(Month/Year) Hernia as a child
--- OUTSIDE RECORDS SUMMARY | 2024-10-24 11:30 | XMS_ITS ---
Author Organization [facility] Address [address] [facility] [address] [place] [address] Care Team Providers Care Weaver Dobby Loom Name Role Phone Charli De La Garza MD Primary Care Provider Joshua Cuellar Unavailable [phone] REASON FOR VISIT bowel prep MEDICATIONS Medication SIG (Take, Route, Frequency, Duration) Notes Start Date End Date Status Dulcolax (colon prep) 5 MG take at 3:00 p.m and 7:00p.m. Orally two tablets twice a day for one day for 1 day 10/02/2024 Active MiraLax (colon prep) 17 GM/SCOOP 1 238Gm bottle mixed with Gatorade or Crystal Light Orally begin at 5:00 p.m. the day before the procedure for 1 day 10/02/2024 Active Encounters Encounter Location Date Provider Diagnosis [facility] [address] [address] 09/28/2024 Joshua Lawrence PLAN OF TREATMENT Medication Medication Name Sig Start Date Stop Date Notes Dulcolax (colon prep) 5 MG take at 3:00 p.m and 7:00p.m. Orally two tablets twice a day for one day for 1 day 10/02/2024 MiraLax (colon prep) 17 GM/SCOOP 1 238Gm bottle mixed with Gatorade or Crystal Light Orally begin at 5:00 p.m. the day before the procedure for 1 day 10/02/2024 Next Appt Details Provider Name:Joshua Lawrence , 12/26/2024 01:20:00 PM, [address] [place] [address] , [place], [place], [phone],
[2024-10-24 11:31] LABS: MANUAL DIFF FLAG NO
[2024-10-24 11:50] LABS: Basophils Absolute Auto 0.1 X10*3/uL (0.0-0.2); Basophils Percent Auto 0.8 % (0-2); Eosinophils Absolute Auto 0.1 X10*3/uL (0.0-0.4); Eosinophils Percent Auto 0.8 % (0-4); Hematocrit 47.3 % (42.0-52.0); Hemoglobin 16.9 g/dl (14.0-18.0); Imm Gran Abs Auto 0.01 X10*3/uL (0.00-0.03); Imm Gran Pct Auto 0.2 % (0.0-0.4); Lymphocytes Absolute Auto 1.8 X10*3/uL (1.2-4.9); Lymphocytes Percent Auto 27.9 % (20-40); Mean Corpuscular HGB Conc 35.7 g/dl (31.0-36.0); Mean Corpuscular Hemoglobin 31.8 pg (27.0-33.0); Mean Corpuscular Volume 89.1 fL (80.0-98.0); Mean Platelet Volume 11.1 fL (9.4-12.4); Monocytes Absolute Auto 0.5 X10*3/uL (0.1-1.2); Monocytes Percent Auto 7.3 % (2-11); Platelet Count 242 X10*3/uL (160-400); Red Blood Count 5.31 X10*6/uL (4.60-5.80); Red Cell Distribution Width 11.3 % (11.0-16.0); White Blood Count 6.3 X10*3/uL (4.8-10.8)
[2024-10-24 12:10] LABS: Alanine Aminotransferase 34 U/L (0-40); Albumin Level 4.8 g/dL (3.5-5.0); Alkaline Phosphatase 60 U/L (39-117); Anion Gap 13 (12-20); Aspartate Amino Transferase 29 U/L (5-37); Bilirubin Total 0.9 mg/dL (0.0-1.0); Blood Urea Nitrogen 18 mg/dL (9-16); Calcium 9.9 mg/dL (8.4-10.2); Carbon Dioxide 28 mmol/L (22-29); Chloride 103 mmol/L (96-108); Cholesterol 244 mg/dL (<200); Estimated Glomerular Filt Rate > 60; Glucose Fasting 95 mg/dL (60-99); HDL Cholesterol 49 mg/dL (>40); LDL Cholesterol Calculated 165 mg/dL (<100); Potassium 4.7 mmol/L (3.3-5.1); Sodium 139 mmol/L (135-145); Total Protein 8.2 g/dL (6.5-8.0); Triglycerides 154 mg/dL (<150)
[2024-10-24 12:28] LABS: Free T4 (Free Thyroxine) 1.23 ng/dL (0.71-1.85); Thyroid Stimulating Hormone 1.16 uIU/mL (0.32-4.0)
== END 2024-10-24 10:06 | disposition home or self-care (01) ==
LOC: HO.10HDL 10:05
PROVIDERS: Visit Provider Internal Medicine
DX: Z00.00 Encounter for general adult medical examination without abnormal findings (principal); R53.83 Other fatigue
CPT/HCPCS: 36415; 80053; 80061; 84439; 84443; 85025

== ENCOUNTER 2025-03-16 12:04 | Outpatient (RCR) | payer OTHER, SELFPAY ==
--- NOTE | 2025-03-16 14:41 | MHC.PT.DC ---
[facility] [place] Office [place] Office [place] Office [address] Carina Khan [address] [phone] F: [phone] F: [phone] F: [phone] F: [phone] Physical Therapy Discharge Report Diagnosis: low back pain (MD Dx) L lumbar radiculopathy, reduced lumbar lordosis (PT Dx) RS Date of Surgery: Date of Evaluation: 12/29/24 Date of Discharge: 03/16/25 Treatments to Date: 17 Cancellations to Date: No Shows to Date: Discharge Status: Improved Function Independent with HEP Recommend MD Follow-up Discharge Summary: This is Hong's last PT session. He has plateaued in his progress and completed course of physical therapy. He has benefitted from exercises, therapeutic activities and lumbar traction. Lumbar traction alleviates some LE radicular symptoms for 1-2 days but then his familiar symptoms return. We discuss assisted management with positions of comfort and exercises. Electronically signed by: Benito Rubio, PT, DPT Please sign and return to therapist. Thank you for your referral.
== END 2025-03-16 14:41 | disposition home or self-care (01) ==
LOC: HO.PT 12:04
PROVIDERS: PCP Internal Medicine; Visit Provider Internal Medicine
DX: M54.50 Low back pain, unspecified (principal)
CPT/HCPCS: 97012; 97110; 97140; 97161; 97530; 97535

== ENCOUNTER 2025-04-03 09:26 | Outpatient (REF) | payer OTHER, SELFPAY ==
--- OUTSIDE RECORDS SUMMARY | 2025-04-03 09:57 | XMS_ITS | Patient Health Record ---
Author Organization [facility] Address [address] [place] [address] Care Team Providers Care Cardiology Clinical Nurse Specialist Name Role Phone Charli De La Garza MD Primary Care Provider Joshua Cuellar Unavailable [phone] Allergies No Known Allergies Reason For Referral No Information Medications Medication SIG (Take, Route, Frequency, Duration) Notes [...] TH ONCE DAILY Oral for 90 Active Immunizations Vaccine Route Administration Date Status Comme nts Influenza Unknown 09/28/2024 Refused Social History Tobacco Use: Social History Observation Description Date Details (start date - stop date) Never Smoker NA - NA Tobacco Use/Smoking Question Answer Notes Patient is a nonsmoker Alcohol Screen Question Answer Notes Did you have a drink containing alcohol in the p ast year? No Points 0 Interpretation Negative Problems Problem Type SNOMED Code ICD Code Onset Dates Problem Status W/U Status Risk Notes Problem Screening for malignant neoplasm of colon (125105379) Encounter for screening for malignant neoplasm of colon (Z12.11) Active confirmed Problem Pre-procedure evaluation check (358417965) Encounter for other preprocedural examination (Z01.818) Active confirmed Vital Signs Temperature 98.2 degrees Fahrenheit 09/28/2024 Blood pressure diastolic 00 mm Hg 09/28/2024 Height 6 ft in 09/28/2024 Blood pressure systolic 000 mm Hg 09/28/2024 Weight 145 lbs 09/28/2024 BMI 19.66 kg/m2 09/28/2024 Encounters Encounter Location Date Provider Diagnosis [facility] [address] [place] [address] 09/28/2024 Joshua Lawrence Encounter for screen ing for malignant neoplasm of colon Z12.11 and Encounter for other preprocedural examination Z01.818 [facility] [address] [place] [address] 09/28/2024 Joshua Lawrence [facility] [address] [place] [address] 02/27/2025 Joshua Lawrence Assessments Encounter Date Diagnosis (ICD Code) Assessment Notes Treatment Notes Treatment Clinical Notes Section Notes 09/28/2024 Encounter for screening for malignant neoplasm of colon (ICD-10 - Z12.11) Overall, Enriqueta appears well. Given his age and good clinical appearance, as well as his never having had a colonoscopy, I did recommend a colonoscopy for screening purposes. We did review the rationale for that regard to colon cancer prevention. Full consent was obtained for this, including risks of bleeding and perforation. The procedure will be done with monitored anesthesia care. Enriqueta was comfortable with this plan. Thank you again for allowing me to participate in Enriqueta's care. I shall continue to keep you advised of his progress. 09/28/2024 Encounter for other preprocedural examination (ICD-10 - Z01.818) Overall, Enriqueta appears well. Given his age and good clinical appearance, as well as his never having had a colonoscopy, I did recommend a colonoscopy for screening purposes. We did review the rationale for that regard to colon cancer prevention. Full consent was obtained for this, including risks of bleeding and perforation. The procedure will be done with monitored anesthesia care. Enriqueta was comfortable with this plan. Thank you again for allowing me to participate in Enriqueta's care. I shall continue to keep you advised of his progress. Plan Of Treatment Future Test Test Name Order Date COLONOSCOPY 09/28/2024 Insurance Providers Payer Name Payer Address Payer Phone Subscriber Number Group Number Insured Name Patient Relationship to Insured Coverage Start Date Coverage End Date [facility] [address] [address] [place], [place] [id number] ENRIQUETA VAUGHN Self - patient is the insured Medical (General) History Medical History History ICD Code Polycystic kidneys and hepatic cysts Herniated discs L4/L5 HTN Denies PR,DM,CVA,Lung disease Surgical History Surgery Date(Month/Year) Hernia as a child
--- OUTSIDE RECORDS SUMMARY | 2025-04-03 09:57 | XMS_ITS | Clinical Summary ---
Author Organization [facility] Address [address] [place] [address] [place] [address] Phone Care Team Providers Care Manager Port Name Role Phone Charli De La Garza MD Primary Care Provider [phone] Allergies No known active allergies Medications sertraline (ZOLOFT) 50 MG tablet Take 50 mg by mouth 1 (one) time each day Active Psyllium (METAMUCIL PO) Take by mouth Active lactulose (CEPHULAC) 20 g packet Take 20 g by mouth in the morning and 20 g in the evening and 20 g before bedtime. Active lisinopril 10 MG tablet Take 2 tablets (20 mg total) by mouth 1 (one) time each day 180 tablet 3 01/12/2025 Active Active Problems Problem Noted Date Diagnosed Date Autosomal dominant polycystic kidney disease Multiple congenital cysts of kidney 03/13/2025 Chronic low back pain 03/13/2025 Hypertensive disorder 03/13/2025 Mixed anxiety and depressive disorder 03/13/2025 Encounters Date Type Department Care Team Description 01/13/2025 Telephone [facility] [address] [place] [phone] Gerard Mayo MD 01/12/2025 4:15 PM EDT Office Visit [facility] [address] [place] [address] Gerard Mayo MD Autosomal dominant polycystic kidney disease (Primary Dx); Hypertension from Last 3 Months Family History Medical History Relation Comments Hypertension Father Kidney disease Father Hypertension Mother Kidney disease Sibling 1 brother & sister Diabetes Sibling 2 Hypertension Sibling 3 Relation Status Comments Father Mother Sibling 1 Sibling 2 Sibling 3 Social History Tobacco Use Types Packs/Day Years Used Date Smoking Tobacco: Smoker, Current Status Unknown Alcohol Use Standard Drinks/Week Comments No 0 (1 standard drink = 0.6 oz pur e alcohol) Sex and Gender Information Value Date Recorded Sex Assigned at Not on file Legal Sex Male 4:54 PM EST Gender Identity Not on file Sexual Orientation Not on file Last Filed Vital Signs Vital Sign Reading Time Taken Comments Blood Pressure 120/84 01/12/2025 4:15 PM EDT Pulse 76 01/12/2025 4:15 PM EDT Temperature - - Respiratory Rate - - Oxygen Saturation 98% 01/12/2025 4:15 PM EDT Inhaled Oxygen Concentration - - Weight 63.5 kg (140 lb) 01/12/2025 4:15 PM EDT Height 177.8 cm (5' 10 ) 04/29/2019 12:00 PM EDT Body Mass Index 20.09 04/29/2019 12:00 PM EDT Plan of Treatment Upcoming Encounters Date Type Department Care Team (Late st Contact Info) Description 04/14/2025 Orders Only [facility] [address] [place] [address] Gerard Mayo MD [address] [address] Autosomal dominant polycystic kidney disease; Hypertension 04/20/2025 3:00 PM EDT Office [facility] [address] [place] [address] Gerard Mayo MD [address] [address] Health Maintenance Due Date Last Done Comments Hepatitis B Vaccine (1 of 3 - 19+ 3-dose series) 05/08 Pneumococcal Vaccine: 50+ Years (1 of 2 - PCV) 992 Colorectal Cancer Screening: Annual FOBT 2022 Colorectal Cancer Screening: Colonoscopy 2022 Colorectal Cancer Screening: Sigmoidoscopy 2022 Influenza Vaccine (#1) 2025 Insurance Medicaid [place] [facility] Medicaid Care Teams Manager Port Relationship Specialty Start Date End Date Charli De La Garza MD [address] [place] [address] PCP - General 09/03/20
[2025-04-03 10:08] LABS: MANUAL DIFF FLAG NO
[2025-04-03 10:16] LABS: Hematocrit 42.4 % (42.0-52.0); Hemoglobin 14.6 g/dl (14.0-18.0); Imm Gran Abs Auto 0.01 X10*3/uL (0.00-0.03); Imm Gran Pct Auto 0.2 % (0.0-0.4); Lymphocytes Absolute Auto 1.2 X10*3/uL (1.2-4.9); Mean Corpuscular HGB Conc 34.4 g/dl (31.0-36.0); Mean Corpuscular Hemoglobin 30.9 pg (27.0-33.0); Mean Corpuscular Volume 89.8 fL (80.0-98.0); NRBC Abs Auto 0.000 X10*3/uL (0.0-0.012); NRBC Pct Auto 0.0 /100WBC (0.0-0.2); Platelet Count 224 X10*3/uL (160-400); Red Blood Count 4.72 X10*6/uL (4.60-5.80); White Blood Count 4.9 X10*3/uL (4.8-10.8)
[2025-04-03 10:25] LABS: Appearance Urine Clear; Glucose Urine UA Negative (Negative); PH 5.5 (5.0-9.0); Specific Gravity - Urine 1.015 (1.005-1.025)
[2025-04-03 10:32] LABS: Anion Gap 10 (12-20)
[2025-04-03 10:45] LABS: Blood Urea Nitrogen 14 mg/dL (9-16); Calcium 9.5 mg/dL (8.4-10.2); Carbon Dioxide 27 mmol/L (22-29); Chloride 102 mmol/L (96-108); Estimated Glomerular Filt Rate > 60; Magnesium 2.0 mg/dL (1.6-2.6); Potassium 4.4 mmol/L (3.3-5.1); Sodium 135 mmol/L (135-145)
[2025-04-03 11:05] LABS: Microalbum/Creatinine Ratio Ur 37.5 ug/mg cr (<30); Protein/Creatinine Ratio, Ur 0.14 (<0.2); Total Protein Urine Random 19 mg/dL (<12)
[2025-04-03 12:17] LABS: Uric Acid 3.6 mg/dL (3.4-7.0)
[2025-04-03 12:28] LABS: Hemoglobin A1C 121.8329 umol/L; Total Hemoglobin (HGBA1C) 3849.1404 umol/L
[2025-04-03 12:39] LABS: Parathyroid Hormone Intact 75.1 pg/mL (8.7-77.1)
== END 2025-04-03 09:27 | disposition home or self-care (01) ==
LOC: HO.10HDL 09:26
PROVIDERS: Visit Provider Internal Medicine
DX: I10 Essential (primary) hypertension (principal); Q61.3 Polycystic kidney, unspecified
CPT/HCPCS: 36415; 80051; 81003; 82043; 82306; 82310; 82565; 82570; 83036; 83735; 83970; 84100; 84156; 84520; 84550; 85025

== ENCOUNTER 2025-04-25 07:54 | Outpatient (REF) | payer OTHER, SELFPAY ==
--- OUTSIDE RECORDS SUMMARY | 2024-12-26 07:20 | XMS_ITS ---
Author Organization [facility] Address [address] [place] [address] Care Team Providers Care Bead Wrapper Name Role Phone Charli De La Garza MD Primary Care Provider Joshua Cuellar [phone] REASON FOR VISIT screening Encounters Encounter Location Date Provider Diagnosis [facility] [place] [address] [place], [place] [phone] 12/26/2024 Joshua Lawrence Plan Of Treatment No Information Progress Notes * RICARDO VAUGHNWDOB: [birth year] (49 yo M)Acc No.[id number]:12/26/2024 COLON WITH MAC Patient: ENRIQUETA CHENEY Provider: Mitzy Lawrence MD :1975 A ge:49 Y S ex:Male Date:12/26/2024 Address:[address] [place], [place] [phone] Pcp:Charli De La Garza MD Subjective: * Chief Complaints: * 1 . Screening. * Medical History: Objective: * Vitals: Assessment: Plan: * Treatment: * * The named appointment provid er may or may not be the originator of this progress note, and it is not deemed complete until electronically signed by the appointment provider. Sign off status: Pending * Provider: Mitzy Larwence MD Date: 12/26/2024 Generated for Genia benedict/Iban/Ezioitting on: 04/25/2025 07:58 AM EDT
--- OUTSIDE RECORDS SUMMARY | 2025-03-01 06:40 | XMS_ITS ---
Author Organization [facility] Address [address] [place] [address] Care Team Providers Care Ceo & Co Founder Name Role Phone Charli De La Garza MD Primary Care Provider Joshua Cuellar [phone] REASON FOR VISIT screening Encounters Encounter Location Date Provider Diagnosis [facility] [place] Out[facility] [address] [place], [place] [phone] 03/01/2025 Joshua Lawrence Plan Of Treatment No Information Progress Notes * RICARDO VAUGHNWDOB: [birth year] (49 yo M)Acc No.[id number]:03/01/2025 COLON WITH MAC Patient: ENRIQUETA CHENEY Provider: Mitzy Lawrence MD :1975 A ge:49 Y S ex:Male Date:03/01/2025 Address:[address] [place], [place] [phone] Pcp:Charli De La Garza MD Subjective: * [...] Pending * Provider: Mitzy Lawrence MD Date: 03/01/2025 Generated for Genia benedict/Iban/Ezioitting on: 04/25/2025 07:58 AM EDT
--- OUTSIDE RECORDS SUMMARY | 2025-04-20 15:00 | XMS_ITS | Encounter Summary ---
Author Organization [facility] Address [address] [place] [phone] Phone Care Team Providers Care Associate Sales Name Role Phone Charli De La Garza MD Primary Care Provider [phone] Reason for Visit * Reason Comments Autosomal dominant polycystic kidney dis ease Encounter Details Date Type Department Care Team ([facility] Contact Info) Description 04/20/2025 3:00 PM EDT [facility] [address] [place] [phone] Gerard Mayo MD [address] [address] Autosomal dominant polycystic kidney disease (Primary Dx); Hypertension Social History Tobacco Use Types Packs/Day Years Used Date Smoking Tobacco: Smoker, Current Status Unknown Alcohol Use Standard Drinks/Week Comments No 0 (1 standard drink = 0.6 oz pur e alcohol) Sex and Gender Information Value Date Recorded Sex Assigned at Not on file Legal Sex Male 4:54 PM EST Gender Identity Not on file Sexual Orientation Not on file documented as of this encounter Last Filed Vital Signs Vital Sign Reading Time Taken Comments Blood Pressure 108/68 04/20/2025 3:14 PM EDT Pulse 90 04/20/2025 3:14 PM EDT Temperature - - Respiratory Rate - - Oxygen Saturation 97% 04/20/2025 3:14 PM EDT Inhaled Oxygen Concentration - - Weight 63.1 kg (139 lb 3.2 oz) 04/20/2025 3:14 P M EDT Height - - Body Mass Index 19.97 04/29/2019 12:00 PM EDT documented in this encounter Plan of Treatment Upcoming Encounters Date Type Department Care Team (Late Contact Info) Description 07/13/2025 2:00 PM EST [facility] [address] [place] [address] Gerard Mayo MD [address] [facility] [address] [place] [address] Scheduled Orders Name Type Priority Associated Diagnoses Orde r Schedule Hepatic function panel Lab Routine Autosomal dominant polycystic kidney disease Hypertension Expected: 04/20/2025, Expires: 05/21/2026 Basic Metabolic Panel Lab Routine Autosomal dominant polycystic kidney disease Hypertension Every 2 Weeks for 2 Occurrences starting 04/20/2025 until 05/21/2026 Hepatic Function Panel Lab Routine Autosomal dominant polycystic kidney disease Hypertension Every 2 Weeks for 2 Occurrences starting 04/20/2025 until 05/21/2026 Basic Metabolic Panel Lab Routine Autosomal dominant polycystic kidney disease Hypertension Every 4 Weeks for 5 Occurrences starting 04/20/2025 until 05/21/2026 Hepatic Function Panel Lab Routine Autosomal dominant polycystic kidney disease Hypertension Every 4 Weeks for 5 Occurrences starting 04/20/2025 until 05/21/2026 documented as of this encounter Visit Diagnoses Diagnosis Autosomal dominant polycystic kidney disease- Primary Hypertension documented in this encounter Care Teams Associate Sales Relationship Specialty Start Date End Date Charli De La Garza MD [address] [place] PCP - General 09/03/20 documented as of this encounter
--- OUTSIDE RECORDS SUMMARY | 2025-04-25 07:58 | XMS_ITS | Patient Health Record ---
Author Organization [facility] Address [address] [place] [address] Care Team Providers Care Client Relation Specialist Name Role Phone Charli De La Garza MD Primary Care Provider Joshua Cuellar Unavailable [phone] Allergies No Known Allergies Reason For Referral [...] Problem Screening for malignant neoplasm of colon (392516059) Encounter for screening for malignant neoplasm of colon (Z12.11) Active confirmed Problem Pre-procedure evaluation check (813070809) Encounter for other preprocedural examination (Z01.818) Active confirmed Vital Signs Temperature 98.2 degrees Fahrenheit 09/28/2024 Blood pressure diastolic 00 mm Hg 09/28/2024 Height 6 ft in 09/28/2024 Blood pressure systolic 000 mm Hg 09/28/2024 Weight 145 lbs 09/28/2024 BMI 19.66 kg/m2 09/28/2024 Encounters Encounter Location Date Provider Diagnosis [facility] [address] [place] [address] 09/28/2024 Joshua Lawrence Encounter for screen ing for malignant neoplasm of colon Z12.11 and Encounter for other preprocedural examination Z01.818 [facility] [address] [place] [address] 09/28/2024 Joshua Lawrence [facility] [address] [place] [address] 02/27/2025 Joshua Lawrence Assessments Encounter Date Diagnosis [...] Insured Coverage Start Date Coverage End Date [facility] [employer] [facility] [address] [address] [place], [place] [id number] ENRIQUETA VAUGHN Self - patient is the insured Medical (General) History Medical History History ICD Code Polycystic kidneys and hepatic cysts Herniated discs L4/L5 HTN Denies [place],DM,CVA,Lung disease Surgical History Surgery Date(Month/Year) Hernia as a child
--- OUTSIDE RECORDS SUMMARY | 2025-04-25 07:58 | XMS_ITS | Encounter Summary ---
Author Organization [facility] Address [address] [facility] [address] [place] [address] Phone Care Team Providers Care Chemical Applicator Name Role Phone Charli De La Garza MD Primary Care Provider [phone] Encounter Details Date Type Department Care Team ([facility] Contact Info) Description 04/20/2025 Office Communication [facility] [address] [place] [address] Radha Mckenzie [address] [facility] [address] [place] [address] Social History Tobacco Use Types Packs/Day Years [...] on file documented as of this encounter Plan of Treatment Upcoming Encounters Date Type Department Care Team ([facility] Contact Info) Description 07/13/2025 2:00 PM EST [facility] [address] [place] [address] Gerard Mayo MD [address] [facility] [address] [place] [address] documented as of this encounter Visit Diagnoses Not on filedocumented in this encounter Care Teams Chemical Applicator Relationship Specialty Start Date End Date Charli De La Garza MD [address] [place], [place] PCP - General 09/03/20 documented as of this encounter
--- OUTSIDE RECORDS SUMMARY | 2025-04-25 07:58 | XMS_ITS | Clinical Summary ---
Author Organization [facility] [address] [place] [address] Phone Care Team Providers Care Technology Instructor Name Role Phone Charli De La Garza MD Primary Care Provider [phone] Allergies No known active allergies Medications sertraline [...] time each day 180 tablet 3 01/12/2025 6 Active Tolvaptan 45 & 15 MG tablet therapy pack Take 1 dose pack by mouth in the morning and 1 dose pack in the evening. 30 each 5 04/20/2025 5 Active Active Problems Problem Noted Date Diagnosed Date Autosomal dominant polycystic kidney disease Multiple congenital cysts of kidney 03/13/2025 Chronic low back pain 03/13/2025 Hypertensive disorder 03/13/2025 Mixed anxiety and depressive disorder 03/13/2025 Encounters Date Type Department Care Team Description 04/20/2025 3:00 PM EDT Office Visit [facility] [address] [place] [address] Gerard Mayo MD Autosomal dominant polycystic kidney disease (Primary Dx); Hypertension 04/20/2025 Office Communication [facility] [address] [address] Radha Mckenzie 04/14/2025 Orders Only [facility] [address] [place] [address] Gerard Mayo MD Autosomal dominant polycystic kidney disease; Hypertension 04/03/2025 Orders Only [facility] [address] [address] Gerard Mayo MD from Last 3 Months Family History Medical [...] oz) 04/20/2025 3:14 P M EDT Height 177.8 cm (5' 10 ) 04/29/2019 12:00 PM EDT Body Mass Index 19.97 04/29/2019 12:00 PM EDT Plan of Treatment Upcoming Encounters Date Type Department Care Team (Late st Contact Info) Description 07/13/2025 2:00 PM EST Office Visit [facility] [address] [place] [address] Gerard Mayo MD [address] [address] Health Maintenance Due Date Last Done Comments Hepatitis B Vaccine (1 of 3 - 19+ 3-dose series) 05/08 Pneumococcal Vaccine: 50+ Years (1 of 2 - PCV) 992 Colorectal Cancer Screening: Annual FOBT 2022 Colorectal Cancer Screening: Colonoscopy 2022 Colorectal Cancer Screening: Sigmoidoscopy 2022 Influenza Vaccine (#1) 2025 Procedures Procedure Name Priority Date/Time Associated Diagnosis Comments PTH, INTACT (HC) Routine 04/03/2025 10:0 4 AM EDT CALCIUM Routine 04/03/2025 10:04 AM EDT CREATININE, BLOOD Routine 04/03/2025 10: 04 AM EDT BUN Routine 04/03/2025 10:04 AM EDT ELECTROLYTE PANEL Routine 04/03/2025 10: 04 AM EDT URIC ACID Routine 04/03/2025 10:04 AM EDT Autosomal dominant polycystic kidney disease Hypertension HEMOGLOBIN A1C Routine 04/03/2025 10:04 AM EDT Autosomal dominant polycystic kidney disease Hypertension PHOSPHATE ( PHOSPHORUS) Routine 04/03/2025 10:04 AM EDT Autosomal dominant polycystic kidney disease Hypertension MAGNESIUM Routine 04/03/2025 10:04 AM EDT Autosomal dominant polycystic kidney disease Hypertension VITAMIN D 25 HYDROXY Routine 04/03/2025 10:04 AM EDT Autosomal dominant polycystic kidney disease Hypertension CBC AND DIFFERENTIAL Routine 04/03/2025 10:04 AM EDT Autosomal dominant polycystic kidney disease Hypertension ALBUMIN, URINE, RANDOM Routine 04/03/2025 9:54 AM EDT PROTEIN / CREATININE RATIO, URINE Routine 04/03/2025 9:54 AM EDT Autosomal dominant polycystic kidney disease Hypertension URINALYSIS Routine 04/03/2025 9:54 AM EDT Autosomal dominant polycystic kidney disease Hypertension from Last 3 Months Results * Creatinine (04/03/2025 10:04 AM EDT) Creatinine Serum 0.99 0.5 - 1.4 mg/dL See order comments eGFR (Calc) >60 See orde r comments Comment: Chronic Kidney Disease: Estimated GFR < 60 mL/min/1.73m2 Severe Kidney Disease: Estimated GFR < 15 mL/min/1.73m2 04/03/2025 10:0 4 AM EDT 04/03/2025 10:04 AM EDT us Gerard Mayo MD LAB BLOOD ORDERABLES Final Result Performing Organization Address [facility] Co de Phone Number [place] See order comments [place] [address] * PTH, Intact (04/03/2025 10:04 AM EDT) Parathyroid Hormone, Intact 75.1 8.7 - 77.1 pg/mL See order comments 04/03/2025 10:0 4 AM EDT 04/03/2025 10:04 AM EDT us Gerard Mayo MD LAB HISTORICA [id number] RESULTS Final Result Performing Organization Address [facility] Co de Phone Number [place] See order comments [place] [address] * (ABNORMAL) Vitamin D 25 Hydroxy (04/03/2025 10:04 AM EDT) Vitamin D, 25-Hydroxy 11.6(L) >30 ng/mL See order comments Comment: Health Based Reference Values* < 20 ng/mL Deficient 20-30 ng/mL Insufficient > 30 ng/mL Sufficient *Cristy CROUCH. N Engl J Med. 2007;[id number] There is no well-established upper level of normal vitamin D levels. Some laboratories use 50 ng/mL as an upper limit of normal. However, toxicity is patient-dependent and may occur at any level. Careful correlation with the patient's presentation is necessary and, if there is concern for vitamin D toxicity, treatment should be considered irrespective of the serum level. Care must be taken in interpreting Vitamin D results from different laboratories and methodologies. Published data demonstrated that results from patients undergoing hemodialysis may show a negative bias when tested with various automated 25-OH vitamin D assays when compared to LC-MS/MS. When testing samples from patients whose predominant form of Vitamin D is Vitamin D2, such as patients receiving Vitamin D2 supplementation, results that are subtherapeutic should be confirmed with another method such as LC-MS/MS. Blood Venous blood / Unknown 04/03/2025 10:04 AM EDT 04/03/2025 10:04 AM EDT us Gerard Mayo MD LAB BLOOD ORDERABLES Final Result [place] See order comments [place] [address] * CBC and Differential (04/03/2025 10:04 AM EDT) WBC 4.9 4.8 - 10.8 X10*3/uL See order comments RBC 4.72 4.60 - 5.80 X10*6/uL See order comments Hgb 14.6 14.0 - 18.0 g/dl See order comments Hematocrit 42.4 42.0 - 52.0 % See order comments MCV 89.8 80.0 - 98.0 fL See order comments MCH 30.9 27.0 - 33.0 pg See order comments MCHC 34.4 31.0 - 36.0 g/dl See order comments RDW 11.4 11.0 - 16.0 % See order comments Platelets 224 160 - 400 X10*3/uL See order comments MPV 9.8 9.4 - 12.4 fL See order comments Neutrophils % Auto 66.9 45 - 73 % See order comments Immature Granulocytes 0.2 0.0 - 0.4 % See order comments Lymphocytes Relative 25.5 20 - 40 % See order comments Monocytes 6.2 2 - 11 % See order comments Eosinophils Relative 0.6 0 - 4 % See order comments Basophils Relative 0.6 0 - 2 % See order comments nRBC Count 0.0 0.0 - 0.2 /100WBC See order comments Neutrophils Absolute 3.3 2.0 - 8.3 x10*3/uL See order comments Immature Grans (Absolute) 0.01 0.00 - 0.03 X10*3/uL See order comments Lymphocytes Absolute 1.2 1.2 - 4.9 X10*3/uL See order comments Monocytes Absolute 0.3 0.1 - 1.2 X10*3/uL See order comments Eosinophils Absolute 0.0 0.0 - 0.4 X10*3/uL See order comments Basophils Absolute 0.0 0.0 - 0.2 X10*3/uL See order comments NRBC Absolute 0.000 0.0 - 0.012 X10*3/uL See order comments Blood Venous blood / Unknown 04/03/2025 10:04 AM EDT 04/03/2025 10:04 AM EDT Gerard Mayo MD LAB BLOOD ORDERABLES Final Result [facility] See order comments [place] [address] * Uric Acid (04/03/2025 10:04 AM EDT) Uric Acid 3.6 3.4 - 7.0 mg/dL See order comments Blood Venous blood / Unknown 04/03/2025 10:04 AM EDT 04/03/2025 10:04 AM EDT Gerard Mayo MD LAB BLOOD ORDERABLES Final Result [facility] See order comments [place] [address] * BUN (04/03/2025 10:04 AM EDT) BUN 14 9 - 16 mg/dL See order comments 04/03/2025 10:0 4 AM EDT 04/03/2025 10:04 AM EDT us Gerard Mayo MD LAB BLOOD ORDERABLES Final Result [place] See order comments [place] [address] * Phosphorus (04/03/2025 10:04 AM EDT) Phosphorus, Serum 2.7 2.7 - 4.5 mg/dL See order comments Blood Venous blood / Unknown 04/03/2025 10:04 AM EDT 04/03/2025 10:04 AM EDT us Gerard Mayo MD LAB BLOOD ORDERABLES Final Result Performing Organization Address [facility] Co [facility] See order comments [place] [address] * Magnesium (04/03/2025 10:04 AM EDT) Magnesium 2.0 1.6 - 2.6 mg/dL See order comments Blood Venous blood / Unknown 04/03/2025 10:04 AM EDT 04/03/2025 10:04 AM EDT us Gerard Mayo MD LAB BLOOD ORDERABLES Final Result Performing Organization Address [facility] de Phone Number [facility] See order comments [place] [address] * Hemoglobin A1c (04/03/2025 10:04 AM EDT) Hemoglobin A1C 5.0 <6.0 % See o rder comments Comment: Hemoglobin A1C Reference Range Adults: 4.8 - 6.0 % Non diabetic: < 6.0 % Goal: < 7.0 % Additional Action Suggested: > 8.0 % Note: Hemoglobin A1c results are invalid for patients with abnormal amounts of HbF. Blood transfusions may impact the HbA1c concentration in the patient sample. Estimated Average Glucose 97 mg/dL See order comments Comment: eAG = Estimated average glucose which is %A1C expressed as average glucose, using the formula of the [id number] Average Glucose study (ADAG), Diabetes Care, Vol.31,#8, Mar. 2007 Blood Venous blood / Unknown 04/03/2025 10:04 AM EDT 04/03/2025 10:04 AM EDT us Gerard Mayo MD LAB BLOOD ORDERABLES Final Result Performing Organization Address [facility] Co de Phone Number [place] See order comments [place] [address] * Calcium (04/03/2025 10:04 AM EDT) Calcium 9.5 8.4 - 10.2 mg/dL See order comments 04/03/2025 10:0 4 AM EDT 04/03/2025 10:04 AM EDT us Gerard Mayo MD LAB BLOOD ORDERABLES Final Result Performing Organization Address [facility] Phone Number [place] See order comments [place] [address] * (ABNORMAL) Electrolyte panel (04/03/2025 10:04 AM EDT) Sodium 135 135 - 145 mmol/L See order comments Potassium 4.4 3.3 - 5.1 mmol/L See order comments Chloride 102 96 - 108 mmol/L See order comments Bicarbonate (CO2) 27 22 - 29 mmol/L See order comments Anion Gap 10(L) 12 - 20 See order comments 04/03/2025 10:0 4 AM EDT 04/03/2025 10:04 AM EDT us Gerard Mayo MD LAB BLOOD ORDERABLES Final Result Performing Organization Address [facility] Co de Phone Number [place] See order comments [place] [address] * (ABNORMAL) Protein, Total, Random Urine w/Creatinine (Protein/Creat Ratio) (04/03/2025 9:54 AM EDT) Protein Urine Random 19(H) <12 mg/dL See order comments Protein/Creatin ine Ratio, Urine 0.14 <0.2 See order comments Comment: The spot urine protein:creatinine ratio may increase to 0.3 during normal . Urine Urine specimen obtained by clean catch procedure / Unknown 04/03/2025 9:54 AM EDT 04/03/2025 9:54 AM EDT us Gerard Mayo MD LAB URINE ORDERABLES Final Result Performing Organization Address [facility] de Phone Number [place] See order comments [place] [address] * (ABNORMAL) Albumin, urine, random (04/03/2025 9:54 AM EDT) Creatinine, Urine 138.64 mg/dL Se e order comments Urine Microalbumin 52.0 mg/L See order comments Microalbumin/Crea tinine Ratio 37.5(H) <30 ug/mg cr See order comments Comment: Albumin/Creatinine Ratio Reference Ranges: Normal: < 30 ug/mg creatinine Microalbuminuria: 30 - 300 ug/mg creatinine Clinical Albuminuria: > 300 ug/mg creatinine 04/03/2025 9:54 AM EDT 04/03/2025 9:54 AM EDT us Gerard Mayo MD LAB URINE ORDERABLES Final Result Performing Organization Address [facility] de Phone Number [place] See order comments [place] [address] * Urinalysis (04/03/2025 9:54 AM EDT) Color Urine Yellow See orde r comments Appearance Urine Clear See order comments pH Urine 5.5 5.0 - 9.0 See order comments Glucose Urine Negative Negative mg/dL See order comments Blood, Urine Negative Negative See ord er comments Specific [place] Urine 1.015 1.005 - 1.025 See order comments Protein Urine Trace Neg-Trace mg/dL See order comments Ketones, Urine Trace Negative mg/dL See order comments Nitrite, Urine Negative Negative See o rder comments Leukocyte Esterase Urine Negative Negative See order comments Urine Urine specimen obtained by clean catch procedure / Unknown 04/03/2025 9:54 AM EDT 04/03/2025 9:54 AM EDT us Gerard Mayo MD LAB URINE ORDERABLES Final Result [place] See order comments [place] [address] from Last 3 Months Insurance [facility] [place] [place] [id number] Care Teams Technology Instructor Relationship Specialty Start Date End Date Charli De La Garza MD [address] [place] [address] PCP - General 09/03/20
[2025-04-25 11:45] LABS: Alanine Aminotransferase 30 U/L (0-40); Albumin Level 4.5 g/dL (3.5-5.0); Alkaline Phosphatase 53 U/L (39-117); Anion Gap 10 (12-20); Aspartate Amino Transferase 28 U/L (5-37); Blood Urea Nitrogen 11 mg/dL (9-16); Calcium 8.9 mg/dL (8.4-10.2); Carbon Dioxide 28 mmol/L (22-29); Chloride 104 mmol/L (96-108); Estimated Glomerular Filt Rate > 60; Potassium 4.4 mmol/L (3.3-5.1); Sodium 138 mmol/L (135-145); Total Protein 6.9 g/dL (6.5-8.0)
== END 2025-04-25 07:55 | disposition home or self-care (01) ==
LOC: HO.10HDL 07:54
PROVIDERS: Visit Provider Internal Medicine
DX: Q61.3 Polycystic kidney, unspecified (principal); I10 Essential (primary) hypertension
CPT/HCPCS: 36415; 80048; 80076

== ENCOUNTER 2025-05-05 13:07 | Outpatient (AMB) | payer OTHER, SELFPAY ==
--- OUTSIDE RECORDS SUMMARY | 2024-12-26 07:20 | XMS_ITS ---
Author Organization [facility] Address [address] [place] [address] Care Team Providers Care Coat Repair Inspector Name Role Phone Charli De La Garza MD Primary Care Provider Joshua Cuellar [phone] REASON FOR VISIT screening Encounters Encounter Location Date Provider Diagnosis [facility] [place] [address] [place], [place] [phone] 12/26/2024 Joshua Lawrence Plan Of Treatment No Information Progress Notes * RICARDO VAUGHNWDOB: [birth year] (49 yo M)Acc No.[id number]:12/26/2024 COLON WITH MAC Patient: ENRIQUETA CHENEY Provider: Mitzy Lawrence MD :1975 A ge:49 Y S ex:Male Date:12/26/2024 Address:[address] [place], [place] [phone] Pcp:Charli De La Garza MD Subjective: * Chief Complaints: * 1 . Screening. * Medical History: Objective: * Vitals: Assessment: Plan: * Treatment: * * The named appointment provid er may or may not be the originator of this progress note, and it is not deemed complete until electronically signed by the appointment provider. Sign off status: Pending * Provider: Mitzy Lawrence MD Date: 0 12/26/2024 Generated for Genia benedict/Iban/Ezioitting on: 0 05/05/2025 03:38 PM EDT
--- OUTSIDE RECORDS SUMMARY | 2025-03-01 06:40 | XMS_ITS ---
Author Organization [facility] Address [address] [place] [address] Care Team Providers Care Carton And Can Supply Supervisor Name Role Phone Charli De La Garza MD Primary Care Provider Joshua Cuellar [phone] REASON FOR VISIT screening Encounters Encounter Location Date Provider Diagnosis [facility] [place] Out[place] [address] [place], [place] [phone] 03/01/2025 Joshua Lawrence Plan Of Treatment No Information Progress Notes * RICARDO VAUGHNWDOB: [birth year] (49 yo M)Acc No.[id number]:03/01/2025 COLON WITH MAC Patient: ENRIQUETA CHENEY Provider: Mitzy Lawrence MD :1975 A ge:49 Y S ex:Male Date:03/01/2025 Address:[address] [place], [place] [phone] Pcp:Charli De La Garza MD Subjective: * [...] Date: 03/01/2025 Generated for Genia benedict/Iban/Ezioitting on: 05/05/2025 03:38 PM EDT
[2025-05-05 13:18] VITALS: BP 120/70; PULSE 101; RESP 18; TEMP 35.8; O2SAT 98; BMI 19.0
--- NOTE | 2025-05-05 13:18 | MHC.PC.OV ---
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 Here to transition care from Dr. De La Garza, who retired around 6 months ago. He is presenting with management of polycystic kidney disease, degenerative disc disease, and a request for a new lumbar MRI. The patient has a history of polycystic kidney disease, identified after a CAT scan for dehydration revealed cysts on the liver. His kidney function numbers were slightly elevated, leading to a nephrology referral. He is considering a new medication to slow cyst growth, pending insurance approval. The patient has degenerative disc disease with L5 to S1 shows minimal posterior disc bulge with shallow left paracentral protrusion. No significant central stenosis of neural foraminal narrowing on MRI 2022. The patient is reporting left leg pain described as burning and shock-like sensation. The patient states that he feels like his back has worsened and he is seeking to be evaluated by Dr. Bell at [facility] but he will not evaluate him without a MRI within 6 months. The patient experienced severe constipation, treated with lactulose, but reports no current issues. The patient has a history of depression, previously managed with sertraline, but is currently off medication and doing well. [facility] Medical History Hypertension Depression Lumbar disc disease Surgical History H/O hernia repair Family History Father No problems noted. Mother No problems noted. Social History Housing: House Alcohol intake: current Alcohol intake frequency: holidays/special occasions only Alcohol type: beer Patient Tobacco Use Status: Former Tobacco user Tobacco use type: Smokeless Tobacco e-Cigarette/Vaping Use: Former Use Second Hand Smoke Exposure: No service: No Current occupational status: unemployed Cognitive needs: No Hearing needs: No Vision needs: Yes Questionnaire PHQ-9 Over the last 2 weeks, how often have you been bothered by any of the following problems? 1. Little interest or pleasure in doing things: not at all 2. Feeling down, depressed, or hopeless: not at all 3. Trouble falling or staying asleep, or sleeping too much: not at all 4. Feeling tired or having little energy: not at all 5. Poor appetite or overeating: not at all 6. Feeling bad about yourself - or that you are a failure or have let yourself or your family down: not at all 7. Trouble concentrating on things, such as reading the newspaper or watching television: not at all 8. Moving or speaking so slowly that other people could have noticed. Or the opposite - being so fidgety or restless that you have been moving around a lot more than usual: not at all 9. Thoughts that you would be better off or of hurting yourself in some way: not at all Total score: 0 Depression Screening Interpretation: Negative Depression Screening Done: Yes 32363 - PHQ-9 Billing: Yes Source: Developed by Drs. Joshua Eckert, Flory Minor, Abdirahman Fowler and colleagues, with an educational charmaine from [employer]. Thrive Questionnaire Date Thrive assessed: 05/05/25 I am a: Patient What is your living situation today?: I have a steady place to live Within the past 12 months, did the food you bought not last and you didn't have the money to get more?: Never true Within the past 12 months, did you worry whether your food would run out before you got money to buy more?: Never true Do you have trouble paying for medicines?: I choose not to answer this question Do you have trouble getting transportation to medical appointments?: No Do you have trouble paying your heating and electricity bill?: No Do you have trouble taking care of your child, family member or friend?: No Do you have trouble with day-to-day activities such as bathing, preparing meals, shopping, managing finances, etc.?: No Are you currently unemployed and looking for a job?: Yes Are you interested in more education?: No Please select the resources that you would like help with: None Currently or been in a relationship where the following occur: No concerns reported THRIVE Score: 0 AUDIT C Alcohol Use Questionnaire (AUDIT-C) 1. How often do you have a drink containing alcohol?: Never Total Score: 0 SOPHIE-7 AMB Questionnaire SOPHIE-7 Date SOPHIE - 7 assessed: 05/05/25 Feeling nervous, anxious, or on edge: 0 = Not at all Not being able to stop or control worryin = Not at all Worrying too much about different things: 0 = Not at all Trouble relaxin = Not at all Being so restless that it is hard to sit still: 0 = Not at all Becoming easily annoyed or irritable: 0 = Not at all Feeling afraid as if something awful might happen: 0 = Not at all Total SOPHIE-7 score (0-4 normal; 5-9 mild; 10-14 moderate; 15-21 severe): 0 Source: Developed by Drs. Joshua Eckert, Flory Minor, Abdirahman Fowler and colleagues, with an educational charmaine from [employer]. SOPHIE-7 Assessment Billing SOPHIE-7 Assessment Tool: SOPHIE-7 Assessment 62770 Review of Systems Const Denies headache(s) Eyes Denies loss of vision ENT Denies vertigo, Denies dizziness, Denies headache(s) and Denies sore throat Card Denies chest pain, Denies leg edema and Denies lightheadedness Resp Denies cough, Denies hemoptysis and Denies wheezing GI Denies abdominal pain, Denies melena, Denies constipation, Denies diarrhea and Denies vomiting Denies dysuria, Denies urinary frequency and Denies urinary urgency Musc Reports back pain, Denies arthralgias, Denies joint swelling, Denies numbness, Reports radiating pain into limb (Left leg) and Denies tingling Skin/Breast Reports lesions (itchy, crusted, to the left temporal) Neuro Denies Abnormal speech present, Denies behavioral changes, Denies vertigo, Denies dizziness, Denies headache(s), Denies loss of vision, Denies memory loss, Denies numbness, Denies tingling and Reports paresthesias Psych Denies anxiety, Denies behavioral changes, Denies depression, Denies memory loss and Denies panic attacks Eric/Lymph Denies easy bleeding and Denies easy bruising Aller/Immun Denies wheezing Physical exam (Primary Care) Vital Signs: Last Vital Signs Temp 96.4 F L 05/05/25 13:18 Pulse 101 H 05/05/25 13:18 Resp 18 05/05/25 13:18 BP 120/70 05/05/25 13:18 Pulse Ox 98 05/05/25 13:18 Oxygen Delivery Method Room Air 05/05/25 13:18 BMI result Body Mass Index 19.0 Tobacco/Smoking Status: Tobacco use Status Tobacco use date assessed 05/05/25 05/05/25 13:19 Patient Tobacco Use Status Former Tobacco user 05/05/25 13:19 Tobacco use type Smokeless Tobacco 05/05/25 13:19 e-Cigarette/Vaping Use Former Use 05/05/25 13:19 PHQ-9: PHQ-9 Score PHQ-9: Total score 0 05/06/25 22:27 Depression Screening Interpretation: Negative Thrive Assessment: Date of Thrive Assessment Date Thrive assessed 05/05/25 05/05/25 13:19 Currently or been in a relationship where the following occur: No concerns reported Const General: healthy appearing, no acute distress, alert and awake Nutritional Appearance: well nourished Orientation/consciousness: oriented to person, oriented to place and oriented to time HENMT Ears: TM's normal bilaterally General nose exam: Normal nasal mucous membranes and turbinates present Eyes Conjunctivae: conjunctivae normal Sclerae: sclerae normal Pupils: Equal, round and reactive pupils present Neck Neck: Yes no lymphadenopathy and Yes no JVD Thyroid: Thyroid normal Carotids: no bruits Resp Effort & Inspection: normal respiratory effort and not tachypneic Auscultation: no crackles, no rales, no rhonchi and no wheezes Cardio Rate: regular rate Rhythm: regular rhythm Heart sounds: no murmurs and normal S1 and S2 GI Palpation (GI): Soft to palpation, nontender, no hepatomegaly and no splenomegaly Auscultation: normal bowel sounds General: Yes no CVA tenderness Back/Spine/Pelvis Back: no CVA tenderness Thoracic/Lumbar Spine: straight leg raise negative bilaterally and No lumbar spinal tenderness Skin General skin exam: dry skin Lesions: lesion noted (crusty lesion to the left temporal region) Neuro General: oriented to person, oriented to place and oriented to time Cranial nerves: Yes Equal, round and reactive pupils present Speech: No Abnormal speech present Gait exam (Neuro): Normal gait present Motor exam (neuro): no tremor noted Extrem Right upper extremity: full ROM Left upper extremity: full ROM Right lower extremity: full ROM; no edema Left lower extremity: full ROM; no edema Psych Mental Status: mental status grossly normal Speech and movement: Normal speech and movement present Affect: normal affect Attitude: cooperative Thought process: Normal thought process present Coding Level of Care Code Est Pt Level 4 (11132) Diagnoses Lumbar disc disease M51.9 Polycystic kidney disease Q61.3 Hypertension secondary to other renal disorders I15.1 Hypertension type: secondary to other renal disorders Depression, unspecified depression type F32.A Depression Type: unspecified Skin lesion L98.9 Additional Codes PHQ-9 - 39254 - PHQ-9 Billing: Yes ([id number]) SOPHIE-7 Assessment Billing - SOPHIE-7 Assessment Tool: SOPHIE-7 Assessment 61007 ([id number]) Time Spent (min) 39 Assessment & Plan Assessment & Plan (1) Lumbar disc disease: Comment: 20 min reviewing chart evaluating patient and documenting Code(s): M51.9 - Unspecified thoracic, thoracolumbar and lumbosacral intervertebral disc disorder Category: Medical Plan: Patient continued to have back pain with radiculopathy and left lower extremity. He sought consultation from neurosurgeon (Dr. Bell, [facility]) but was requested to have on follow up MRI to further evaluate. The patient recently finished physical therapy and continues to have pain. Lumbar MRI ordered (2) Polycystic kidney disease: Code(s): Q61.3 - Polycystic kidney, unspecified Category: Medical Plan: Autosomal dominant polycystic kidney disease PCKD with the associated cysts on the liver. Has APKD based on imaging criteria. High risk for progression Declining renal function based on the decline in the EGFR over the last year Hypertension likely related to polycystic kidney disease Renal recommend: To start the patient on tolvaptan for polycystic kidney disease Patients enroll in the [facility], where they are monitored at 2 weeks and 4 weeks after treatment initiation, then monthly for 18 months, and every 3 months thereafter. The patient reports that they are awaiting insurance approval. (3) Hypertension: Code(s): I10 - Essential (primary) hypertension Category: Medical Qualifiers: Hypertension type: secondary to other renal disorders Qualified Code(s): I15.1 - Hypertension secondary to other renal disorders Plan: Blood Pressure 120/70 within goal Reinforced low-salt diet Continue lisinopril 20 mg daily (4) Depression: Comment: 20 min reviewing chart eval pt and documenting; cont same meds and f/u in three months Code(s): F32.9 - Major depressive disorder, single episode, unspecified Category: Medical Qualifiers: Depression Type: unspecified Qualified Code(s): F32.A - Depression, unspecified Plan: The patient is no longer on sertraline and reports doing well without it. Denies SI/HI (5) Skin lesion: Code(s): L98.9 - Disorder of the skin and subcutaneous tissue, unspecified Category: Medical Plan: Crusted lesion to left temporal. Dermatology referral placed Orders: Orders Lipid Panel 05/05/25 KIMBERLEY Devries Z00.00 - Encounter for general adult medical examination without abnormal findings MR lumbar spine wo con Today KIMBERLEY Devries M51.9 - Unspecified thoracic, thoracolumbar and lumbosacral intervertebral disc disorder, M54.9 - Dorsalgia, unspecified Referrals Dermatology Referral KIMBERLEY Devries L98.9 - Disorder of the skin and subcutaneous tissue, unspecified Medications: Changed From lisinopril 10 mg PO DAILY 90 tabs 1RF To lisinopril 20 mg PO DAILY Charli De La Garza MD
--- OUTSIDE RECORDS SUMMARY | 2025-05-05 15:38 | XMS_ITS | Encounter Summary ---
Author Organization [facility] Address [address] [address] Phone Care Team Providers Care Service Attendant Name Role Phone Charli De La Garza MD Primary Care Provider [phone] Encounter Details Date Type Department Care Team ([facility] Contact Info) Description 04/28/2025 Orders Only [facility] [address] [place] [phone] Gerard Mayo MD [address] [address] Autosomal dominant polycystic kidney disease; Hypertension Social History Tobacco Use Types Packs/Day [...] Office Visit [facility] [address] [place] [address] Gerard Mayo MD [address] [address] documented as of this encounter Visit Diagnoses Diagnosis Autosomal dominant polycystic kidney disease Hypertension documented in this encounter Care Teams Service Attendant Relationship Specialty Start Date End Date Charli De La Garza MD [address] [place] PCP - General 09/03/20 documented as of this encounter
--- OUTSIDE RECORDS SUMMARY | 2025-05-05 15:38 | XMS_ITS | Clinical Summary ---
Author Organization [facility] [address] [place] [address] Phone Care Team Providers Care Press Shop Supervisor Name Role Phone Charli De La Garza MD Primary Care Provider [phone] Allergies No known active allergies Medications sertraline [...] Encounters Date Type Department Care Team Description 04/28/2025 Orders Only [facility] [address] [place] [address] Gerard Mayo MD Autosomal dominant polycystic kidney disease; Hypertension 04/20/2025 3:00 PM EDT Office Visit [facility] [address] [place] [address] Gerard Mayo MD Autosomal dominant polycystic kidney disease (Primary Dx); Hypertension 04/20/2025 Office Communication [facility] [address] [place] [address] Radha Mckenzie 04/14/2025 Orders Only [facility] [address] [place] [address] Gerard Mayo MD Autosomal dominant polycystic kidney disease; Hypertension 04/03/2025 Orders Only [facility] [address] [facility] [address] [place] [address] Gerard Mayo MD from Last 3 [...] Visit [facility] [address] [place] [address] Gerard Mayo MD [address] [facility] [address] [place] [phone] Health Maintenance Due Date Last Done Comments Hepatitis B Vaccine (1 of 3 - 19+ 3-dose series) 05/08 Pneumococcal Vaccine: 50+ Years (1 of 2 - PCV) 992 Colorectal Cancer Screening: Annual FOBT 2022 Colorectal Cancer Screening: Colonoscopy 2022 Colorectal Cancer Screening: Sigmoidoscopy 2022 Influenza Vaccine (#1) 2025 Procedures Procedure Name Priority Date/Time Associated Diagnosis Comments BASIC METABOLIC PANEL Routine 04/25/2025 10:51 AM EDT Autosomal dominant polycystic kidney disease Hypertension HEPATIC FUNCTION PANEL Routine 04/25/2025 10:51 AM EDT Autosomal dominant polycystic kidney disease Hypertension PTH, INTACT (HC) Routine 04/03/2025 10:0 4 [...] Hypertension from Last 3 Months Results * Hepatic function panel (04/25/2025 10:51 AM EDT) Total Bilirubin 0.7 0.0 - 1.0 mg/dL See order comments Bilirubin, Direct 0.2 0.0 - 0.5 mg/dL See order comments AST (SGOT) 28 5 - 37 U/L See orde r comments ALT (SGPT) 30 0 - 40 U/L See orde r comments Total Protein 6.9 6.5 - 8.0 g/dL See order comments Albumin 4.5 3.5 - 5.0 g/dL See order comments Alkaline phosphatase 53 39 - 117 U/L See order comments Blood Venous blood / Unknown 04/25/2025 10:51 AM EDT 04/25/2025 10:51 AM EDT us Gerard Mayo MD LAB BLOOD ORDERABLES Final Result [place] See order comments [place] [address] * (ABNORMAL) Basic Metabolic Panel (04/25/2025 10:51 AM EDT) Sodium 138 135 - 145 mmol/L See order comments Potassium 4.4 3.3 - 5.1 mmol/L See order comments Chloride 104 96 - 108 mmol/L See order comments Bicarbonate (CO2) 28 22 - 29 mmol/L See order comments Anion Gap 10(L) 12 - 20 See order comments BUN 11 9 - 16 mg/dL See order comments Creatinine Serum 1.06 0.5 - 1.4 mg/dL See order comments eGFR (Calc) >60 See orde r comments Comment: Chronic Kidney Disease: Estimated GFR < 60 mL/min/1.73m2 Severe Kidney Disease: Estimated GFR < 15 mL/min/1.73m2 Glucose 106 60 - 115 mg/dL See order comments Calcium 8.9 8.4 - 10.2 mg/dL See order comments Blood Venous blood / Unknown 04/25/2025 10:51 AM EDT 04/25/2025 10:51 AM EDT us Gerard Mayo MD LAB BLOOD ORDERABLES Final Result Performing Organization Address City/[facility] Co de Phone Number [place] See order comments [place] [address] * Creatinine (04/03/2025 10:04 AM EDT) Creatinine Serum 0.99 0.5 - 1.4 mg/dL See order comments eGFR (Calc) >60 See orde r comments Comment: Chronic Kidney Disease: Estimated GFR < 60 mL/min/1.73m2 Severe Kidney Disease: Estimated GFR < 15 mL/min/1.73m2 04/03/2025 10:0 4 AM EDT 04/03/2025 10:04 AM EDT us Gerard Mayo MD LAB BLOOD ORDERABLES Final Result [place] See order comments [place] [address] * PTH, Intact (04/03/2025 10:04 AM EDT) Parathyroid Hormone, Intact 75.1 8.7 - 77.1 pg/mL See order comments 04/03/2025 10:0 4 AM EDT 04/03/2025 10:04 AM EDT us Gerard Mayo MD LAB HISTORICA [id number] RESULTS Final Result Performing Organization Address City/[facility] Co de Phone Number [place] See order comments [place] [address] * (ABNORMAL) Vitamin D 25 Hydroxy (04/03/2025 [...] Mayo MD LAB BLOOD ORDERABLES Final Result [place] See order comments [place] [address] * CBC and Differential (04/03/2025 10:04 AM [...] Mayo MD LAB BLOOD ORDERABLES Final Result [place] See order comments [place] [address] * Uric Acid (04/03/2025 10:04 AM EDT) Uric Acid 3.6 3.4 - 7.0 mg/dL See order comments Blood Venous blood / Unknown 04/03/2025 10:04 AM EDT 04/03/2025 10:04 AM EDT us Gerard Mayo MD LAB BLOOD ORDERABLES Final Result Performing Organization Address [facility] Co de Phone Number [place] See order comments [place] [address] * BUN (04/03/2025 10:04 AM EDT) BUN 14 9 - 16 mg/dL See order comments 04/03/2025 10:0 4 AM EDT 04/03/2025 10:04 AM EDT us Gerard Mayo MD LAB BLOOD ORDERABLES Final Result Performing Organization Address [facility] de Phone Number [place] See order comments [place] [address] * Phosphorus (04/03/2025 10:04 AM EDT) Phosphorus, Serum 2.7 2.7 - 4.5 mg/dL See order comments Blood Venous blood / Unknown 04/03/2025 10:04 AM EDT 04/03/2025 10:04 AM EDT us Gerard Mayo MD LAB BLOOD ORDERABLES Final Result Performing Organization Address [facility] Co de Phone Number [place] See order comments [place] [address] * Magnesium (04/03/2025 10:04 AM EDT) Magnesium 2.0 1.6 - 2.6 mg/dL See order comments Blood Venous blood / Unknown 04/03/2025 10:04 AM EDT 04/03/2025 10:04 AM EDT us Gerard Mayo MD LAB BLOOD ORDERABLES Final Result Performing Organization Address City/[facility] Co de Phone Number [place] See order comments [place] [address] * Hemoglobin A1c (04/03/2025 10:04 AM EDT) [...] average glucose, using the formula of the [id number] Average Glucose study (ADAG), Diabetes Care, Vol.31,#8, 2007 Blood Venous blood / Unknown 04/03/2025 10:04 AM EDT 04/03/2025 10:04 AM EDT Gerard Mayo MD LAB BLOOD ORDERABLES Final Result Performing Organization Address [facility] Co de Phone Number [place] See order comments [place] [address] * Calcium (04/03/2025 10:04 AM EDT) Pathologist [facility] Calcium 9.5 8.4 - 10.2 mg/dL See order comments 04/03/2025 10:0 4 AM EDT 04/03/2025 10:04 AM EDT Gerard Mayo MD LAB BLOOD ORDERABLES Final Result Performing Organization Address [facility] Co de Phone Number [facility] See order comments [place] [address] * (ABNORMAL) Electrolyte panel (04/03/2025 10:04 AM [...] BLOOD ORDERABLES Final Result Performing Organization Address [facility] Co de Phone Number [place] See order comments [place] [address] * (ABNORMAL) Protein, Total, Random Urine w/Creatinine [...] URINE ORDERABLES Final Result Performing Organization Address [facility] de Phone Number [place] See order comments [place] [address] * (ABNORMAL) Albumin, urine, random (04/03/2025 9:54 [...] URINE ORDERABLES Final Result Performing Organization Address [facility] Co de Phone Number [facility] See order comments [place] [address] * Urinalysis (04/03/2025 9:54 AM EDT) Color Urine Yellow See orde r comments Appearance Urine Clear See order comments pH Urine 5.5 5.0 - 9.0 See order comments Glucose Urine Negative Negative mg/dL See order comments Blood, Urine Negative Negative See ord er comments Specific [place] Urine 1.015 1.005 - 1.025 See order [...] Mayo MD LAB URINE ORDERABLES Final Result [place] See order comments [place] [address] from Last 3 Months Insurance [facility] Medicaid Care Teams Press Shop Supervisor Relationship Specialty Start Date End Date Charli De La Garza MD [address] [place] [address] PCP - General 09/03/20
--- OUTSIDE RECORDS SUMMARY | 2025-05-05 15:38 | XMS_ITS | Patient Health Record ---
Author Organization [facility] Address [address] [place] [address] Care Team Providers Care Junior Legal Secretary Name Role Phone Charli De La Garza MD Primary Care Provider Joshua Cuellar Unavailable [phone] Allergies No Known Allergies Reason For Referral [...] Problem Screening for malignant neoplasm of colon (523882418) Encounter for screening for malignant neoplasm of colon (Z12.11) Active confirmed Problem Pre-procedure evaluation check (104029800) Encounter for other preprocedural examination (Z01.818) Active confirmed Vital Signs Temperature 98.2 degrees Fahrenheit 09/28/2024 Blood pressure diastolic 00 mm Hg 09/28/2024 Height 6 ft in 09/28/2024 Blood pressure systolic 000 mm Hg 09/28/2024 Weight 145 lbs 09/28/2024 BMI 19.66 kg/m2 09/28/2024 Encounters Encounter Location Date Provider Diagnosis [facility] [address] [place] [address] 09/28/2024 Joshua Lawrence Encounter for screen ing for malignant neoplasm of colon Z12.11 and Encounter for other preprocedural examination Z01.818 [facility] [address] [place] [address] 09/28/2024 Joshua Lawrence [facility] [address] [place] [address] 02/27/2025 Joshua Lawrence Assessments Encounter Date Diagnosis [...] Coverage Start Date Coverage End Date [facility] [employer] [facility] [address] [address] [place], [place] [id number] ENRIQUETA VAUGHN Self - patient is the insured Medical (General) History Medical History History ICD Code Polycystic kidneys and hepatic cysts Herniated discs L4/L5 HTN Denies [place],DM,CVA,Lung disease Surgical History Surgery Date(Month/Year) Hernia as a child
== END 2025-05-05 14:06 | disposition home or self-care (01) ==
LOC: HO.HMCH 13:07
PROVIDERS: PCP Internal Medicine
DX: M51.9 Unspecified thoracic, thoracolumbar and lumbosacral intervertebral disc disorder (principal); Q61.3 Polycystic kidney, unspecified; I15.1 Hypertension secondary to other renal disorders; F32.A Depression, unspecified; L98.9 Disorder of the skin and subcutaneous tissue, unspecified

== ENCOUNTER → 2025-05-05 13:07 | Outpatient (BNVA) | payer OTHER, SELFPAY | PROVIDERS: PCP Internal Medicine | DX: Q61.3 Polycystic kidney, unspecified (principal); M51.369 Other intervertebral disc degeneration, lumbar region without mention of lumbar back pain or lower extremity pain; I15.1 Hypertension secondary to other renal disorders; F32.A Depression, unspecified; L98.9 Disorder of the skin and subcutaneous tissue, unspecified | CPT/HCPCS: 96127; 99212 ==